=== PATIENT | female | born 1985 | race African-American/Black ===

== ENCOUNTER 2020-03-13 14:55 | Emergency (ER) | payer OTHER, SELFPAY ==
--- NOTE | ~2020-03-13 | XR_ITS ---
EXAMINATION: XR abdomen/kub 1V INDICATION: Right-sided low back pain TECHNIQUE: Supine views of the abdomen were obtained on 2 radiographs. COMPARISON: None FINDINGS: There are no dilated loops of bowel. The visualized lung bases are clear. There are phlebol iths of the pelvis. An old anterolateral deformity of the right 10th rib is noted. There is moderate spondylosis at L5-S1. IMPRESSION: 1. No radiographic correlate for the patient's symptoms. Reviewed, dictated and finalized at location A.
--- NOTE | 2020-03-13 15:04 | ED.GENADULT ---
HPI - General Adult General Chief complaint: Back Pain/Injury Stated complaint: Rt flank/back pain/rash on hands Time Seen by Provider: 03/13/20 15:04 Source: patient Mode of arrival: ambulatory Limitations: no limitations History of Present Illness HPI narrative: 34-year-old female patient presents to [facility] with complaints right lower back pain that radiates to the flank and the right lower abdomen. Patient states she has had this pain for about a week now. Denies any pain with urination, urgency or frequency. Denies any fevers, body aches or chills. Denies any nausea, vomiting or diarrhea. Patient states she does have history of degenerative disc disease in her lower back but states that this pain is not her typical degenerative disc disease chronic back pain and states that the pain to the side is new. Denies any history of kidney stones before in the past. Denies or breast-feeding at this time. Patient unaware of when her last period was due to the fact that she is on the Nexplanon. Related Data Home Medications Medication Instructions Recorded Confirmed ergocalciferol (vitamin D2) 50,000 mcg PO DAILY 03/13/20 03/13/20 omeprazole 20 mg PO DAILY 03/13/20 03/13/20 Allergies Allergy/AdvReac Type Severity Reaction Status Date / Time No Known Allergies Allergy Unverified 05/26/17 13:30 Review of Systems Review of Systems: Narrative: CONSTITUTIONAL: Denies fever, chills, or sweats. EYES: Denies visual changes, redness, or discharge. ENT: Denies rhinorrhea, congestion, sore throat, or otalgia. CARDIOVASCULAR: Denies chest pain, palpitations, or edema. RESPIRATORY: Denies cough or dyspnea. GASTROINTESTINAL: Positive right side lower abdominal pain, denies nausea, vomiting, or diarrhea. Positive right flank pain GENITOURINARY: Denies dysuria or hematuria. SKIN: Denies rash or itching. MUSCULOSKELETAL: Positive right lower back pain, denies joint pain, or myalgia. NEUROLOGIC: Denies headache, numbness, or weakness. PSYCHIATRIC: Denies anxiety or depression. [facility] Social History Social History Alcohol intake: current Substance use type: marijuana Gender identity (if verbalized by the patient): Female Comments At the time of my signature I agree with nursing past medical history, surgical, social, and family history. There is no relevant family history pertinent to the presenting complaint. Exam Narrative: Exam Narrative: GENERAL: Well-appearing, well-nourished, and in no acute distress. HEAD: Normocephalic, atraumatic. EYES: PERRLA and EOMI. ENT: Nares clear, no rhinorrhea or epistaxis. Mucous membranes moist. NECK: Supple. No lymphadenopathy CHEST: Clear to auscultation. No respiratory distress. HEART: Regular rate and rhythm. No murmur heard. Normal peripheral pulses. ABDOMEN: Soft, flat, nondistended. No guarding, rebound tenderness, or rigid. No pulsatilla masses. Hyperactive bowel sounds present in all right upper and right lower quadrants. No organomegaly. Negative Najera?s sign. No periumbicial tenderness. No Supra public tenderness or distension. Good femoral pulses bilaterally. No hernia noted. No scars or surface trauma. Slight CVA tenderness to the right BACK: Patient is able to ambulated without assistance. Pt is seated/lying on the stretcher in no obvouis distress. No surface trauma noted. No muscle tenderness to Palpation. No spasm or mass. No step-offs or deformity noted to the cervical, thoracic or lumbar spine to firm Palpation at the midline. No CVA tenderness to percussion. No saddle anesthesia. ROM: able to stand erect. Normal flexion, extension, Lateral bending and rotation without limitation or complaint of pain. EXTREMITIES: Normal range of motion. No edema. SKIN: Warm, dry, no rash. NEURO: No focal deficits. Alert and oriented x3. Course Reevaluation(s) Reevaluation #1: Reevaluated patient after her KUB had resulted. D
[2020-03-13 15:16] VITALS: BP 120/73; PULSE 83; RESP 18; TEMP 36.7; O2SAT 100
== END 2020-03-13 16:26 | disposition home or self-care (01) ==
PROVIDERS: Emergency Provider Nurse Practitioner Family; PCP Emergency Medicine
DX: R10.9 Unspecified abdominal pain (principal); K21.9 Gastro-esophageal reflux disease without esophagitis
CPT/HCPCS: 74018; 81003; 87086; 99213; G0463

== ENCOUNTER 2020-05-14 08:09 | Outpatient (CLI) | payer OTHER, SELFPAY ==
--- NOTE | ~2020-05-14 | US_ITS ---
US abdomen complete EXAMINATION: US Abdomen Complete INDICATION: Elevated liver enzymes PROCEDURE: Realtime High Resolution abdomen ultrasound. COMPARISON: CT dated 01/06/2016 FINDINGS: Gallbladder within normal limits. No gallstones, pericholecystic fluid, gallbladder wall t hickening or biliary dilatation. Common bile duct measures 3 mm. Liver echotexture within normal limits without focal mass. Pancreas within normal limits. Pancreati c tail is obscured by bowel gas. Spleen is unremarkeable. Renal echotexture is within normal limits bilaterally without hydronephrosis, contour deforming mass or renal stone. Right kidney measures 10.1 cm. Left kidney measures 9.7 cm. Visualized aspects of the aorta and IVC are within normal limits. Portal vein is patent. No sonograph ic Najera's sign indicated by the technologist. IMPRESSION: 1: Normal abdominal ultrasound. Reviewed, dictated and finalized at location A. ATIONAL PSYCHOLOGY PROFESSOR
== END 2020-05-14 08:10 | disposition home or self-care (01) ==
LOC: ANHIMG 08:19
PROVIDERS: PCP Emergency Medicine; Visit Provider Emergency Medicine
DX: K76.89 Other specified diseases of liver (principal)
CPT/HCPCS: 76700

== ENCOUNTER 2020-06-11 17:00 | Outpatient (RCR) | payer OTHER, SELFPAY ==
--- NOTE | 2020-05-14 17:46 | PTOPEVAL ---
PHYSICAL THERAPY EVALUATION AND PLAN OF CARE Thank you for referring Barb Marino to [facility].? The patient is scheduled to be seen for therapy? 1-2x/week for 3-4 weeks to accommodate patient's ability to make appointments. Please review, sign, date and return this plan of care ERICK. I agree with and certify that the following plan of care is medically necessary. Referring Physician Date Attending Provider: Aaron Cherry, Evaluation Outpatient Past Medical History Gastrointestinal History Hx Gastroesophageal Reflux Disease Yes Musculoskeletal History Hx Back Pain Yes: DDD, diagnosed in 2014 Diagnosis low back pain - degenerative disc disease Onset 2014 Subjective Information Reports that her back hurts 24 Query Text:As Reported By Patient/ /. She was diagnosed with DDD Family in 2014 and pain has worsened . She was referred to a pain management doctor and she has received 2 rounds of steroid injections. The first round she felt really good for 4-5 days. The second round was today, so she is not sure the effects yet. Pain stays pretty much the same all day. She has to brace herself for coughing and sneezing and in the mornings she is really stiff. She cannot do too much bending over. States that pain management is hoping to get an MRI to compare to the MRI from 2015. Reports no radicular symptoms. Diagnostic Tests MRI For This Problem Yes: from 2014 - DDD Self Report Pain Assessment Bilateral Spine, Lumbar Reported Pain Level 6 Pain Description Aching,Sharp Pain Frequency Chronic,Continuous Lowest Pain Intensity 4 Greatest Pain Intensity 9 Pain Aggravating Factors Bending Pain Score Pain Score 6: Self Report Interventions Used Interventions Used By Clinicians Exercise Pain Relief Interventions Used By Heat Patient Cervical and Lumbar ROM Lumbar ROM Lumbar Flexion (0-90) 50 Query Text:Active in Degrees Lumbar Flexion Active Ankle Query Text:Hands to: Lumbar Extension (0-40) 30 Query Text:Active in Degrees Lateral Rotation Right (0-45) 30 Query Text:Active in Degrees
--- NOTE | 2020-06-01 14:35 | PCPTNOTE ---
Patient called & cancelled scheduled appointments for this week due to work schedule.
--- NOTE | 2020-06-03 11:31 | PCPTNOTE ---
Patient called & cancelled scheduled appointment this date due to work.
--- NOTE | 2020-06-08 18:00 | PCPTNOTE ---
Patient did not show up for scheduled appointment this date; voicemail left for remind of re-eval
--- NOTE | 2020-06-11 17:40 | PTOPEVAL ---
PHYSICAL THERAPY DISCHARGE NOTE Thank you for referring Barb Marino to [facility].? Please review, sign, date and return this plan of care ERICK. I agree with and certify that the following plan of care is medically necessary. Referring Physician Date Attending Provider: Aaron Cherry, MD Discharge Diagnosis low back pain - degenerative disc disease Onset 2014 Subjective Information States she is doing ok. 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 She states that next week she sees the doctor for lidocaine injections and there will likely be other procedures after that. She is still interested in an MRI of the low back. Self Report Pain Assessment Bilateral Spine, Lumbar Reported Pain Level 1 Pain Description Aching,Sharp Pain Frequency Chronic,Continuous Pain Aggravating Factors Bending,Lifting Other Pain Aggravating Factors twisting Pain Score Pain Score 1: Self Report Interventions Used Interventions Used By Clinicians Exercise Pain Relief Interventions Used By Heat Patient Cervical and Lumbar ROM Lumbar ROM Lumbar Flexion (0-90) 50 Query Text:Active in Degrees Lumbar Flexion Active Ankle Query Text:Hands to: Lumbar Extension (0-40) 30 Query Text:Active in Degrees Lateral Rotation Right (0-45) 30 Query Text:Active in Degrees Lateral Rotation Left (0-45) 30 Query Text:Active in Degrees Lumbar Comments flexion = clean movement and able to reach toes Cervical and Lumbar Muscle Testing Lumbar Strength Upper Abdominal Strength 3+Fair+ Lower Abdominal Strength 3+Fair+ Lower Extremity Muscle Strength Testing Hip Strength Left Hip Flexion Strength 4+ Good + Hip Extension Strength 4 Good Hip Abduction Strength 4+ Good + Right Hip Flexion Strength 5 Normal Hip Extension Strength 4+ Good + Hip Abduction Strength 5 Normal Knee Strength Left Knee Flexion Strength 5 Normal Knee Extension Strength 5 Normal Right Knee Flexion Strength 5 Normal Knee Extension Strength 5 Normal Muscle Length Testing Muscle Length Testing Napoleon Test Shortened Muscles Short (L) Rectus Femoris Piriformis w/Hip Flexion >90 Degrees (R) Mild Tightness,(L) Moderate Tightnes
== END 2020-06-12 09:05 | disposition home or self-care (01) ==
LOC: ANHPT 17:00
PROVIDERS: PCP Emergency Medicine; Referring Provider Nurse Practitioner Family; Visit Provider Nurse Practitioner Family
DX: M54.5 Low back pain (principal)
CPT/HCPCS: 97110; 97161

== ENCOUNTER 2020-08-15 08:43 | Outpatient (CLI) | payer OTHER, SELFPAY ==
--- NOTE | ~2020-08-15 | MR_ITS ---
EXAMINATION: MR lumbar spine wo con DATE: 08/15/2020 09:24 INDICATION: Lumbago TECHNIQUE: Magnetic resonance imaging (MRI) of the lumbar spine was performed without intravenous con trast. Sequences included sagittal T2-weighted FSE, sagittal T2-weighted FS FSE, sagittal T1-weighted FSE, and axial T2-weighted FSE. COMPARISON: 03/18/2015 FINDINGS: Alignment is normal. Vertebral body heights are normal. Diffuse red marrow reexpansion throughout the spine. Disc desiccation and annular fissures at L4-L5 and L5-S1. Minimal disc height loss at L4-L5 a nd interval progression of now moderate disc height loss at L5-S1. Degenerative endplate changes with fibrofatty and fibrovascular changes at both sides of L5-S1. The conus medullaris terminates at L2. There is normal signal in the caudal spinal cord. Paravertebral soft tissues are unremarkable. The fo llowing disc levels are specifically discussed: T12-L1 through L3-L4: The disc does not extend beyond the endplate margin. There is no facet joint os teoarthritis. There is no neural foraminal stenosis. There is no central canal stenosis. L4-L5: Mild diffuse disc bulge. There is mild bilateral facet joint osteoarthritis. There is mild gagan ateral neural foraminal stenosis. There is mild central canal stenosis. L5-S1: Disc is mildly bulging with superimposed broad-based disc extrusion extending from foraminal z one to foraminal zone with disc material extending couple millimeter caudal to the level of the super ior endplate of S1. There is mild bilateral facet joint osteoarthritis. There is moderate bilateral n eural foraminal stenosis. There is minimal central canal stenosis. IMPRESSION: 1. Mild to moderate lower lumbar spondylosis with progression of now moderate disc height loss at L5- S1. Reviewed, dictated and finalized at location A. IMPRESSION: 1. Mild to moderate lower lumbar spondylosis with progression of now moderate d isc height loss at L5-S1.
== END 2020-08-15 08:44 | disposition home or self-care (01) ==
PROVIDERS: PCP Emergency Medicine; Visit Provider Nurse Practitioner Family
DX: M47.896 Other spondylosis, lumbar region (principal)
CPT/HCPCS: 72148

== ENCOUNTER → 2020-10-09 08:07 | Outpatient (CLI) | payer OTHER, SELFPAY ==
[2020-10-10 19:44] LABS: SARS-CoV-2 RNA PCR Negative
== END ==
PROVIDERS: PCP Emergency Medicine; Visit Provider Emergency Medicine
DX: Z20.822 Contact with and (suspected) exposure to COVID-19 (principal); B34.9 Viral infection, unspecified
CPT/HCPCS: C9803; U0003; U0005

== ENCOUNTER 2020-12-15 19:32 | Emergency (ER) | payer OTHER, SELFPAY ==
--- NOTE | ~2020-12-15 | XR_ITS ---
EXAMINATION: XR wrist LT min 3V EXAM DATE: 12/15/2020 19:52 INDICATION: lt wrist pain after injury. TECHNIQUE: Left wrist frontal, frontal with ulnar deviation, oblique and lateral projections obtained and reviewed. There is no prior study for comparison. FINDINGS: Left wrist scapholunate joint space is maintained. There are no acute fractures or dislocat ions identified. There is no subcutaneous gas. The soft tissue is unremarkable. There are no radi opaque foreign bodies. IMPRESSION: No acute osseous findings. Reviewed, dictated and finalized at location A. IMPRESSION: No acute osseous findings.
[2020-12-15 19:42] VITALS: BP 126/76; PULSE 81; RESP 16; TEMP 36.6; O2SAT 100
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
== END 2020-12-15 20:12 | disposition home or self-care (01) ==
PROVIDERS: Emergency Provider Nurse Practitioner; PCP Emergency Medicine
DX: S63.502A Unspecified sprain of left wrist, initial encounter (principal); S66.912A Strain of unspecified muscle, fascia and tendon at wrist and hand level, left hand, initial encounter; X58.XXXA Exposure to other specified factors, initial encounter; K21.9 Gastro-esophageal reflux disease without esophagitis
CPT/HCPCS: 73110; 99213; G0463

== ENCOUNTER → 2021-02-05 02:57 | Outpatient (CLI) | payer OTHER, SELFPAY ==
[2021-02-05 18:57] LABS: SARS-CoV-2 RNA PCR Negative
== END ==
PROVIDERS: PCP Emergency Medicine; Visit Provider Emergency Medicine
DX: B34.9 Viral infection, unspecified (principal); Z20.822 Contact with and (suspected) exposure to COVID-19
CPT/HCPCS: C9803; U0003; U0005

== ENCOUNTER 2021-05-15 08:45 | Outpatient (CLI) | payer OTHER, SELFPAY ==
--- NOTE | ~2021-05-15 | MM_ITS ---
EXAMINATION: MM screening jone BI w mio HISTORY: Screening mammogram TECHNIQUE: Craniocaudal and mediolateral oblique 3-D tomosynthesis images were obtained and synthetic 2-D images were generated. CAD analysis was submitted and interpreted. COMPARISON: None, baseline BREAST PARENCHYMAL COMPOSITION: There are scattered areas of fibroglandular density. FINDINGS: RIGHT BREAST: There is a focal asymmetry in the posterior third of the slightly upper breast in line with the nipple axis. LEFT BREAST: There is no evidence of suspicious mass, calcification, or architectural distortion to s uggest malignancy. IMPRESSION: 1. Focal asymmetry of the right breast. 2. Additional mammographic views and possible breast ultrasound are recommended. BI-RADS Category 0: Incomplete: Needs additional imaging evaluation. Reviewed, dictated and finalized at location A. CRIB ATTENDANT IMPRESSION: 1. Focal asymmetry of the right breast. 2. Additional mammographic views and possible breast ultrasound are recommended . BI-RADS Category 0: Incomplete: Needs additional imaging evaluation.
== END 2021-05-15 08:46 | disposition home or self-care (01) ==
LOC: ANHIMG 08:46
PROVIDERS: PCP Emergency Medicine; Visit Provider Emergency Medicine
DX: Z12.31 Encounter for screening mammogram for malignant neoplasm of breast (principal); R92.8 Other abnormal and inconclusive findings on diagnostic imaging of breast
CPT/HCPCS: 77063; 77067

== ENCOUNTER 2021-05-18 14:57 | Emergency (ER) | payer OTHER, SELFPAY ==
[2021-05-18 15:10] VITALS: BP 124/64; PULSE 88; RESP 16; TEMP 36.6; O2SAT 100
--- NOTE | 2021-05-18 16:22 | ED.GENADULT ---
HPI - General Adult General Chief complaint: Back Pain/Injury Stated complaint: back pain/abdominal pain Source: patient Mode of arrival: ambulatory Limitations: no limitations History of Present Illness HPI narrative: Patient is a 35-year-old -[place] female presents to the [facility] via POV for evaluation of chronic back pain. Her PCP is Dr. Calvillo. She is also being managed by her pain management md. she reports her back pain this morning to be worsening therefore she called her PCP who recommended urgent care which prompted today's visit. She states her back pain was especially painful this morning. She states it felt more stiff and a pinching pain . She also reports a stomachache that is mild in nature although states, I am really not here for that, I am really here for my back pain. She is scheduled to have a nerve stimulator placed in May although is awaiting a psych evaluation. Denies taking OTC meds for symptoms. Her meloxicam and gabapentin are ineffective per her reports. Everything worsens back pain Related Data Home Medications Medication Instructions Recorded Confirmed ergocalciferol (vitamin D2) 50,000 mcg PO DAILY 03/13/20 12/15/20 famotidine 40 mg PO DAILY 12/15/20 12/15/20 gabapentin 05/18/21 meloxicam 05/18/21 Allergies Allergy/AdvReac Type Severity Reaction Status Date / Time No Known Allergies Allergy Verified 05/18/21 15:16 Review of Systems Review of Systems: Denies injury. Pertinent negatives fever, chills, sweats, change in appetite, poor p.o. intake, malaise, headache, stiffness, spasms, abdominal pain, nausea, vomiting, diarrhea, constipation, dysuria, urinary frequency/urgency, hematuria, urinary retention, flank pain, bladder/bowel incontinence, skin color changes, deformity, numbness, tingling, loss of sensation, decreased ROM, difficulty with ambulation/coordination, chest pain, heart palpitations/murmurs, and sob. [facility] Social History Social History Alcohol intake: current Substance use type: marijuana Gender identity (if verbalized by the patient): Female Comments I have reviewed and agree with the patient's past medical, surgical, social, and family hx as documented by the RN. There is no relevant family history pertinent to the presenting complaint. Exam Narrative: GENERAL: Well-appearing, well-nourished, and in no acute distress. HEAD: Normocephalic, atraumatic. NECK: Supple. No lymphadenopathy or nuchal rigidity. No evidence of pain, decreased ROM, or deformity. CHEST: Lung sounds are clear to auscultation in bilateral lung patel. No respiratory distress. HEART: Regular rate and rhythm. No murmur heard. Normal peripheral pulses. ABDOMEN: Soft, nontender, nondistended, normal active bowel sounds in all quadrants. No guarding. No rebound tenderness. No pulsatile or palpable abdominal mass(es). No CVAT EXTREMITIES: Normal range of motion. No edema. BACK: Full ROM. Moderate pain is elicited to bilateral low back with all movement and palpation. No evidence of deformity, spasm, mass, spinal tenderness, or swelling. Bilateral SLR tests negative. Ambulates hunched over. Slowed gait. SKIN: Warm, dry, no rash. No skin color changes. Excellent turgor. NEURO: No focal deficits. Alert and oriented x3. Course Vital Signs Vital signs: Vital Signs Temperature 97.9 F 05/18/21 15:10 Pulse Rate 88 05/18/21 15:10 Respiratory Rate 16 05/18/21 15:10 Blood Pressure 124/64 05/18/21 15:10 Pulse Oximetry 100 05/18/21 15:10 Temperature 97.9 F 05/18/21 15:10 Pulse Rate 88 05/18/21 15:10 Respiratory Rate 16 05/18/21 15:10 Blood Pressure 124/64 05/18/21 15:10 Pulse Oximetry 100 05/18/21 15:10 Medical Decision Making Differential Diagnosis Differential Diagnosis: Spinal stenosis, radiculopathy/sciatica,cauda equina syndrome, sacroiliac pathology, fracture, strain, spasm, U
== END 2021-05-18 16:45 | disposition home or self-care (01) ==
PROVIDERS: Emergency Provider Nurse Practitioner Family; PCP Emergency Medicine
DX: G89.29 Other chronic pain (principal); M54.50 Low back pain, unspecified; K21.9 Gastro-esophageal reflux disease without esophagitis
CPT/HCPCS: 99213; G0463

== ENCOUNTER 2021-06-21 13:28 | Outpatient (CLI) | payer OTHER, SELFPAY ==
--- NOTE | ~2021-06-21 | MMUS_ITS ---
EXAMINATION: MM diagnostic jone RT w mio, US breast RT limited HISTORY: Right breast focal asymmetry on screening mammogram TECHNIQUE: Additional 3-D tomosynthesis images of the right breast were performed and synthetic 2-D i mages were generated. CAD analysis was submitted and interpreted. High resolution limited right breas t ultrasound was performed. COMPARISON: 05/15/2021 BREAST PARENCHYMAL COMPOSITION: There are scattered areas of fibroglandular density. FINDINGS: MAMMOGRAPHIC FINDINGS: No persistent focal asymmetry is identified with spot compression of the right breast. There is no barber spicious mass, calcification, or architectural distortion. ULTRASOUND: There is no evidence of focal abnormal solid or cystic mass in the vicinity of the mammographic findi ng in question. IMPRESSION: 1. No mammographic or sonographic evidence of malignancy. 2. Recommend routine screening mammography beginning at age 40. BI-RADS Category 1: Negative Reviewed, dictated and finalized at location A. DESIGN TEACHER IMPRESSION: 1. No mammographic or sonographic evidence of malignancy. 2. Recommend routine screening mammography beginning at age 40. BI-RADS Category 1: Negative
== END 2021-06-21 13:29 | disposition home or self-care (01) ==
LOC: ANHIMG 13:29
PROVIDERS: PCP Emergency Medicine; Visit Provider Nurse Practitioner Obstetrics & Gynecology
DX: R92.8 Other abnormal and inconclusive findings on diagnostic imaging of breast (principal)
CPT/HCPCS: 76642; 77061; 77065; G0279

== ENCOUNTER 2021-08-17 09:33 | Emergency (ER) | payer OTHER, SELFPAY ==
--- NOTE | ~2021-08-17 | XR_ITS ---
EXAMINATION: XR foot RT min 3V DATE: 08/17/2021 10:33 INDICATION: First toe pain TECHNIQUE: Dorsoplantar, lateral, and 2 oblique views of the right foot were obtained. COMPARISON: 07/09/2012 FINDINGS: There is no acute fracture, dislocation, or subluxation. The bones, soft tissues, and joint spaces are normal. An old healed fracture of the third proximal phalanx is noted. IMPRESSION: 1. No acute osseous abnormality. Reviewed, dictated and finalized at location K.
[2021-08-17 09:41] VITALS: BP 118/70; PULSE 78; RESP 16; TEMP 36.2; O2SAT 99
--- NOTE | 2021-08-17 09:59 | ED.LOWEXIN ---
HPI - Extremity Injury (Lower) General Chief Complaint: Extremity Injury, Lower Stated Complaint: injury right 1st digit toe Time Seen by Provider: 08/17/21 09:59 Source: patient, RN notes reviewed and old records reviewed Mode of arrival: ambulatory Limitations: no limitations History of Present Illness HPI Narrative: 35 old female presents to the [facility] with right great toe pain and swelling. Patient states that she stepped her toe. Has bruising noted to the medial aspect. Related Data Home Medications Medication Instructions Recorded Confirmed gabapentin 300 mg PO DAILY 05/18/21 08/17/21 meloxicam 7.5 mg PO DAILY 05/18/21 08/17/21 omeprazole 20 mg PO DAILY 08/17/21 08/17/21 Allergies Allergy/AdvReac Type Severity Reaction Status Date / Time No Known Allergies Allergy Verified 08/17/21 10:14 Review of Systems Review of Systems: All systems reviewed & are unremarkable except as noted in HPI and below Constitutional: Constitutional: Reports no additional constitutional complaints Eyes: Eyes: Reports no additional eye complaints ENT: Reports system reviewed and no additional complaints, except as documented Cardiovascular: Cardiovascular: Reports no additional cardiovascular complaints Respiratory: Respiratory: Reports no additional respiratory complaints Gastrointestinal: Gastrointestinal: Reports no additional gastrointestinal complaints and Denies abdominal pain Musculoskeletal: Musculoskeletal: Reports as per HPI Comments: Right great toe pain, swelling, bruising Integumentary/Breasts: Skin/Breast: Reports system reviewed and no additional complaints, except as docu Neurologic: Reports system reviewed and no additional complaints, except as documented Psychiatric: Psychiatric: Reports no additional psychiatric complaints Allergic/Immunologic: Allergic/Immunologic: Reports no additional allergic/immunologic complaints PMFSH Social History Social History Alcohol intake: current Substance use type: marijuana Gender identity (if verbalized by the patient): Female Comments At the time of my signature, I reviewed and agree with the nursing past medical, surgical, social, and family history. There is no relevant family history pertinent to the patient complaint. Exam Const: General: healthy appearing, no acute distress and alert Nutritional Appearance: well nourished Orientation/consciousness: patient oriented x3 Limitations: no limitations HENMT: Head: normal to inspection Eyes: Pupils: Equal, round and reactive pupils present Neck: Neck: normal visual inspection, no lymphadenopathy and no meningeal signs Chest: Chest palpation & inspection: normal inspection of the chest Resp: Effort & Inspection: normal respiratory effort Auscultation: clear to auscultation bilaterally Cardio: Rate: regular rate Rhythm: regular rhythm : General: Yes no CVA tenderness Back/Spine/Pelvis: Back: no CVA tenderness Skin: General skin exam: normal color Rashes: no rashes Wounds: no wounds Neuro: General: patient oriented x3, moves all extremities, no meningeal signs and no focal motor deficits Cranial nerves: Yes Equal, round and reactive pupils present Speech: normal speech Gait exam (Neuro): Normal gait present Extrem: General: capillary refill normal and normal exam except as noted Right lower extremity: foot Details: normal capillary refill, tenderness (Base of right toe), abnormal ROM of toe Details: pain with active ROM Location: of the great toe and pain with passive ROM Location: of the great toe and ecchymosis (Right great toe medial aspect) Psych: Appearance: grossly normal and well kempt Mental Status: mental status grossly normal Affect: normal affect Attitude: cooperative Thought content: Yes Normal thought content present Course Course Emergency Course: Discharge instructions reviewed with patient, as well as provided
== END 2021-08-17 11:00 | disposition home or self-care (01) ==
PROVIDERS: Emergency Provider Nurse Practitioner; PCP Emergency Medicine
DX: S90.111A Contusion of right great toe without damage to nail, initial encounter (principal); X58.XXXA Exposure to other specified factors, initial encounter; K21.9 Gastro-esophageal reflux disease without esophagitis
CPT/HCPCS: 73630; 99213; G0463

== ENCOUNTER 2021-11-17 09:34 | Outpatient (CLI) | payer OTHER, SELFPAY ==
--- NOTE | ~2021-11-17 | XR_ITS ---
EXAMINATION: XR_ENEMABAC_CR DATE: 11/17/2021 10:37 INDICATION: Anemia. Incomplete colonoscopy. 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 A catheter was inserted into the patient's rectum. Contra st was infused by gravity. Gas was infused by hand pump. Fluoroscopic spot images and conventional ra diographs were obtained. Fluoroscopy exposure time was 0.6 minutes. The total number of images was 26 . COMPARISON: CT abdomen and pelvis 01/06/16 FINDINGS: There is no abnormal mass or stricture. The appendix is normal. IMPRESSION: 1. Normal double contrast enema. Reviewed, dictated and finalized at location A.
== END 2021-11-17 09:35 | disposition home or self-care (01) ==
PROVIDERS: PCP Emergency Medicine; Visit Provider Internal Medicine Gastroenterology
DX: Z53.9 Procedure and treatment not carried out, unspecified reason (principal); D64.9 Anemia, unspecified
CPT/HCPCS: 74280

== ENCOUNTER 2022-04-13 11:59 | Emergency (ER) | payer OTHER, SELFPAY ==
[2022-04-13 12:04] VITALS: BP 129/74; PULSE 106; RESP 16; TEMP 36.9; O2SAT 100
--- NOTE | 2022-04-13 12:10 | ED.URI ---
HPI - URI/Sore Throat General Chief Complaint: Upper Respiratory Infection Stated Complaint: sore throat Time Seen by Provider: 04/13/22 12:18 History of Present Illness HPI Narrative: 36 y/o female presented for c/o sore throat, weakness, and body aches for 2 days. Subjective fever. Denies sick contacts. Currently on treatment for yeast infection, was seen by ObGyn yesterday. Awaiting STD testing as well for c/o vaginal discharge. Denies n/v/d, urinary complaints. LMP 03/02/22. Related Data Home Medications Medication Instructions Recorded Confirmed gabapentin 300 mg capsule 300 mg PO DAILY 05/18/21 04/13/22 meloxicam 7.5 mg tablet 7.5 mg PO DAILY 05/18/21 04/13/22 omeprazole 20 mg capsule,delayed 20 mg PO DAILY 08/17/21 04/13/22 release cyclobenzaprine 10 mg tablet 10 mg PO DIRECTED 04/13/22 04/13/22 famotidine 40 mg tablet 40 mg PO DAILY 04/13/22 04/13/22 fluconazole 200 mg tablet 200 mg PO DIRECTED 04/13/22 04/13/22 metronidazole 0.75 % (37.5 mg/5 1 appful vaginal DIRECTED 04/13/22 04/13/22 gram) vaginal gel Allergies Allergy/AdvReac Type Severity Reaction Status Date / Time No Known Allergies Allergy Verified 04/13/22 12:17 Review of Systems Review of Systems: CONSTITUTIONAL: Denies body aches, fever, chills, or sweats. EYES: Denies visual changes, redness, or discharge. ENT: Denies rhinorrhea, congestion, or otalgia. CARDIOVASCULAR: Denies chest pain, palpitations, or edema. RESPIRATORY: Denies dyspnea. GASTROINTESTINAL: Denies abdominal pain, nausea, vomiting, or diarrhea. SKIN: Denies rash, itching, or wounds. MUSCULOSKELETAL: Denies back pain, joint pain, or myalgia. NEUROLOGIC: Denies headache PMFSH Social History Social History Alcohol intake: current Substance use type: marijuana Gender identity (if verbalized by the patient): Female Exam Narrative: GENERAL: Ill-appearing, no acute distress. EYES: conjunctivae clear ENT: Mucous membranes moist. TMs pearly guerrero with normal light reflex bilaterally; no tragal tenderness. Oropharynx erythematous with Tonsillar swelling 2+ and green exudate. No drooling, no hoarseness, no trismus, uvula midline. No tripod positioning, hot potato voice, or soft palate swelling. NECK: Supple. No lymphadenopathy CHEST: Clear to auscultation, breath sounds equal. No respiratory distress, speaks in full sentences. HEART: Regular rate and rhythm. No murmur heard. SKIN: Warm, dry, no rash. NEURO: Alert and oriented x3. Course Course Emergency Course: Patient is aware of diagnosis, understands and agrees to treatment plan. Anticipatory guidance given. Patient agrees to follow-up as directed and is aware of reasons to seek care at the emergency department. Portions of this record may have been created with voice recognition software Level of Care: Express Care Visit Vital Signs Vital signs: Vital Signs Temperature 98.5 F 04/13/22 12:04 Pulse Rate 106 H 04/13/22 12:04 Respiratory Rate 16 04/13/22 12:04 Blood Pressure 129/74 04/13/22 12:04 Pulse Oximetry 100 04/13/22 12:04 Oxygen Delivery Room Air 04/13/22 12:04 Temperature 98.5 F 04/13/22 12:04 Pulse Rate 106 H 04/13/22 12:04 Respiratory Rate 16 04/13/22 12:04 Blood Pressure 129/74 04/13/22 12:04 Pulse Oximetry 100 04/13/22 12:04 Oxygen Delivery Room Air 04/13/22 12:04 MDM - URI/Sore Throat MDM Narrative Medical decision making narrative: Neg flu and strep result reviewed with pt. Neg urine preg. Based on pt's PE, developing sx after recent new sexual partner, and c/o vaginal discharge will r/o pharyngeal gonorrhea/chlamydia. Pt is agreeable for empiric treatment of gonorrhea at this time and should chlamydia result positive she will be treated accordingly. Aware the results can take up to one week. Advised supportive treatments. Patient is appropriate for outpatient treatment and foll
[2022-04-13] MEDS: cefTRIAXone 500 MG, LIDOCAINE HCL 1% LOCAL INJ 1 ML IM (12:52)
== END 2022-04-13 13:15 | disposition home or self-care (01) ==
PROVIDERS: Emergency Provider Nurse Practitioner Family; PCP Emergency Medicine
DX: J02.9 Acute pharyngitis, unspecified (principal); F12.90 Cannabis use, unspecified, uncomplicated
CPT/HCPCS: 81025; 87081; 87491; 87591; 87804; 87880; 96372; 99213; G0463; J0696

== ENCOUNTER 2022-04-14 10:43 | Emergency (ER) | payer OTHER, SELFPAY ==
[2022-04-14 11:08] VITALS: BP 120/73; PULSE 92; RESP 18; TEMP 36.4; O2SAT 99
--- NOTE | 2022-04-14 12:37 | PC.NURSE ---
PT added that she had a new sex partner 5 days ago and did perform oral sex and is wondering if it could possibly be an STD. informed patient to share information with provider.
--- NOTE | 2022-04-14 13:05 | ED.URI ---
HPI - URI/Sore Throat General Chief Complaint: Upper Respiratory Infection Stated Complaint: sore throat Time Seen by Provider: 04/14/22 12:19 Source: patient History of Present Illness HPI Narrative: Patient 36 years old -[place] female presents with sore throat started 2 days after having oral sex with a new partner. Patient went to urgent care yesterday and tested negative for COVID, strep and influenza, received antibiotic intramuscular for gonorrhea and declined to take any further antibiotic for possible chlamydia. Patient came to our emergency room today for further evaluation and questioning. She denies any fever, chills, nausea, vomiting. Patient reported some nasal congestion and the feeling that she needs to blow her nose. Related Data Home Medications Medication Instructions Recorded Confirmed gabapentin 300 mg capsule 300 mg PO DAILY 05/18/21 04/13/22 meloxicam 7.5 mg tablet 7.5 mg PO DAILY 05/18/21 04/13/22 omeprazole 20 mg capsule,delayed 20 mg PO DAILY 08/17/21 04/13/22 release cyclobenzaprine 10 mg tablet 10 mg PO DIRECTED 04/13/22 04/13/22 famotidine 40 mg tablet 40 mg PO DAILY 04/13/22 04/13/22 fluconazole 200 mg tablet 200 mg PO DIRECTED 04/13/22 04/13/22 metronidazole 0.75 % (37.5 mg/5 1 appful vaginal DIRECTED 04/13/22 04/13/22 gram) vaginal gel Allergies Allergy/AdvReac Type Severity Reaction Status Date / Time No Known Allergies Allergy Verified 04/13/22 12:17 Review of Systems Review of Systems: All systems reviewed & are unremarkable except as noted in HPI and below PMFSH Social History Social History Alcohol intake: current Substance use type: marijuana Gender identity (if verbalized by the patient): Female Exam Narrative: General appearance: Well-developed, well-nourished Skin: Normal color Head: Normocephalic, nontraumatic Eyes: Clear conjunctiva ENT: Oropharyngeal erythema, slight white patches on the tonsils bilaterally Neck: Supple, nontender Chest and respiratory: Airway patent, no respiratory distress, no accessory muscle use Heart: Regular rate/rhythm Abdomen: Soft, nontender, no organomegaly, quiet bowel sounds Vascular: Normal peripheral pulses, normal capillary refill. Musculoskeletal: Normal range of motion, nontender back Neurologic: Alert and oriented ?3, [employer] is normal as tested, no gross motor deficit Course Course Emergency Course: Viral pharyngitis is my concern. Patient tested negative for COVID, influenza and RSV. Still a possibility for rhinovirus, adenovirus etc. Patient received a shot of antibiotic yesterday for possible gonorrhea, she declined any antibiotic for possible chlamydia. My plan to discharge patient on 1 g of azithromycin for possible STD. Vital Signs Vital signs: Vital Signs Temperature 36.4 C L 04/14/22 11:08 Pulse Rate 92 04/14/22 11:08 Respiratory Rate 18 04/14/22 11:08 Blood Pressure 120/73 04/14/22 11:08 Pulse Oximetry 99 04/14/22 11:08 Oxygen Delivery Room Air 04/14/22 11:08 Temperature 36.4 C L 04/14/22 11:08 Pulse Rate 92 04/14/22 11:08 Respiratory Rate 18 04/14/22 11:08 Blood Pressure 120/73 04/14/22 11:08 Pulse Oximetry 99 04/14/22 11:08 Oxygen Delivery Room Air 04/14/22 11:08 MDM - URI/Sore Throat Differential Diagnosis Differential diagnosis: Likely upper respiratory infection, viral infection and pharyngitis Lab Data Labs: Lab Results 04/14/22 Range/Units 13:16 Influenza A (RT-PCR) Negative (Negative) Influenza B (RT-PCR) Negative (Negative) SARS-CoV-2 RNA (RT-PCR) Negative Strep Screen
[2022-04-14 14:08] LABS: Influenza A QL RT-PCR Negative (Negative); Influenza B QL RT-PCR Negative (Negative); SARS-CoV-2 RNA PCR Negative
[2022-04-14 15:33] LABS: Monoscreen Negative (Negative); Negative Monotest Control Negative (Negative); Positive Monotest Control Positive (Positive)
== END 2022-04-14 15:12 | disposition home or self-care (01) ==
PROVIDERS: Emergency Provider Emergency Medicine; PCP Emergency Medicine
DX: J02.9 Acute pharyngitis, unspecified (principal); Z20.822 Contact with and (suspected) exposure to COVID-19
CPT/HCPCS: 36415; 86308; 87081; 87636; 87880; 99283

== ENCOUNTER 2022-08-23 17:57 | Outpatient (CLI) | payer OTHER, SELFPAY ==
--- NOTE | ~2022-08-23 | MM_ITS ---
EXAMINATION: MM screening [facility] BI w mio HISTORY: Screening TECHNIQUE: Craniocaudal and mediolateral oblique 3-D tomosynthesis images were obtained and synthetic 2-D images were generated. CAD analysis was submitted and interpreted. COMPARISON: Comparison to multiple prior studies sequentially, with oldest reviewed study dated 04/28. BREAST PARENCHYMAL COMPOSITION: There are scattered areas of fibroglandular density. FINDINGS: There is no evidence of suspicious mass, calcification, or architectural distortion to sugg est malignancy in either breast. There has been no suspicious interval change. IMPRESSION: 1. No mammographic evidence of malignancy. 2. Recommend routine screening mammography in one year. BI-RADS Category 1: Negative Reviewed, dictated and finalized at location A.
== END 2022-08-23 17:58 | disposition home or self-care (01) ==
PROVIDERS: PCP Emergency Medicine; Visit Provider Nurse Practitioner Obstetrics & Gynecology
DX: Z12.31 Encounter for screening mammogram for malignant neoplasm of breast (principal)
CPT/HCPCS: 77063; 77067

== ENCOUNTER 2022-12-25 17:29 | Emergency (ER) | payer OTHER, SELFPAY ==
--- NOTE | 2022-12-25 17:39 | PC.NURSE ---
in br to obtain ua spec.
[2022-12-25 17:45] VITALS: BP 133/76; PULSE 92; RESP 16; TEMP 36.7; O2SAT 100
--- NOTE | 2022-12-25 18:08 | ED.GENADULT ---
HPI - General Adult General Chief complaint: Urogenital-Female Stated complaint: urinary issue Source: patient Mode of arrival: ambulatory Limitations: no limitations History of Present Illness HPI narrative: Patient presents for evaluation of dysuria since yesterday. She indicates she has had some episodes where she has noted some blood on the tissue when wiping after urination. She also started her menstrual period today. no fever, chills, nausea, vomiting, abdominal of vaginal discharge. She purchased some Azo. She has no other symptoms at the present time. Related Data Home Medications Medication Instructions Recorded Confirmed gabapentin 300 mg capsule 300 mg PO DAILY 05/18/21 04/13/22 meloxicam 7.5 mg tablet 7.5 mg PO DAILY 05/18/21 04/13/22 omeprazole 20 mg capsule,delayed 20 mg PO DAILY 08/17/21 04/13/22 release famotidine 40 mg tablet 40 mg PO DAILY 04/13/22 04/13/22 Allergies Allergy/AdvReac Type Severity Reaction Status Date / Time No Known Allergies Allergy Verified 12/25/22 17:58 Review of Systems Review of Systems: CONSTITUTIONAL: Denies fever, chills, or sweats. EYES: Denies visual changes, redness, or discharge. ENT: Denies rhinorrhea, congestion, sore throat, or otalgia. CARDIOVASCULAR: Denies chest pain, palpitations, or edema. RESPIRATORY: Denies cough or dyspnea. GASTROINTESTINAL: Denies abdominal pain, nausea, vomiting, or diarrhea. GENITOURINARY: reports dysuria and some blood on the tissue when wiping after urination SKIN: Denies rash or itching. MUSCULOSKELETAL: Denies back pain, joint pain, or myalgia. NEUROLOGIC: Denies headache, numbness, dizziness, or weakness. PSYCHIATRIC: Denies anxiety or depression. [facility] Past Medical History Medical History No pertinent past medical history Surgical History Surgical History No pertinent past surgical history Family History Family History Mother Hypertension Social History Social History Smoking status: Never smoker Alcohol intake: current Substance use: current Substance use type: marijuana Living arrangements: with family Gender identity (if verbalized by the patient): Female Sexual Orientation (if Verbalized by the Patient): Straight or Heterosexual Spiritual care concerns: No Exam Narrative: GENERAL: Well-appearing, well-nourished, and in no acute distress. HEAD: Normocephalic, atraumatic. EYES: PERRLA and EOMI. ENT: Nares clear, no rhinorrhea or epistaxis. Mucous membranes moist. Oropharynx without tonsillar hypertrophy exudate or other lesions. Bilateral TMs pearly guerrero nonbulging NECK: Supple. No adenopathy or masses. No carotid bruits or JVD CHEST: Clear to auscultation. No respiratory distress. No wheezes rales or rhonchi HEART: Regular rate and rhythm. No murmur heard. Normal peripheral pulses. ABDOMEN: Soft, nontender, nondistended, normal active bowel sounds. BACK: no CVA tenderness EXTREMITIES: Normal range of motion. No edema. SKIN: Warm, dry, no rash. NEURO: No focal deficits. Alert and oriented x3. PSYCH: Normal mood and affect. Course Course Emergency Course: This is a 37-year-old female who presented for evaluation of dysuria. Urine today is consistent with UTI. Will treat with Macrobid. Continue azo. Increase hydration. Follow up with primary provider. Will send urine for culture. Go to the emergency department for worsening symptoms. Patient is in agreement with plan of care. Level of Care: Express Care Visit Vital Signs Vital signs: Vital Signs Temperature 36.7 C 12/25/22 17:45 Pulse Rate 92 12/25/22 17:45 Respiratory Rate 16 12/25/22 17:45 Blood Pressure 133/76 12/25/22 17:45 Pulse Oximetry 100
== END 2022-12-25 18:10 | disposition home or self-care (01) ==
PROVIDERS: Emergency Provider Nurse Practitioner; PCP Emergency Medicine
DX: N30.01 Acute cystitis with hematuria (principal); F12.90 Cannabis use, unspecified, uncomplicated
CPT/HCPCS: 81003; 87077; 87086; 87186; 99213; G0463

== ENCOUNTER 2023-08-29 13:09 | Outpatient (CLI) | payer BC, SELFPAY ==
--- NOTE | ~2023-08-29 | MM_ITS ---
EXAMINATION: MM screening [facility] BI w mio HISTORY: Screening TECHNIQUE: Craniocaudal and mediolateral oblique 3-D tomosynthesis images were obtained and synthetic 2-D images were generated. CAD analysis was submitted and interpreted. COMPARISON: Comparison to multiple prior studies sequentially, with oldest reviewed study dated 04/28. BREAST PARENCHYMAL COMPOSITION: Dense: The breasts are heterogeneously dense, which may obscure small masses FINDINGS: There is no evidence of suspicious mass, calcification, or architectural distortion to sugg est malignancy in either breast. There has been no suspicious interval change. IMPRESSION: 1. No mammographic evidence of malignancy. 2. Recommend routine screening mammography in one year. BI-RADS Category 1: Negative Reviewed, dictated and finalized at location A.
== END 2023-08-29 13:10 | disposition home or self-care (01) ==
LOC: CHSIMG 13:14
PROVIDERS: PCP Emergency Medicine; Visit Provider Nurse Practitioner Obstetrics & Gynecology
DX: Z12.31 Encounter for screening mammogram for malignant neoplasm of breast (principal)
CPT/HCPCS: 77063; 77067

== ENCOUNTER 2023-11-15 08:54 | Outpatient (CLI) | payer BC, SELFPAY ==
--- NOTE | ~2023-11-15 | MR_ITS ---
Procedure: MR lumbar spine wo con Ordering provider: Alfonzo Patel MD History: . M54.41 - Lumbago with sciatica, right side . Comparison: None. Technique: MRI lumbar spine without contrast. FINDINGS: SPINAL CORD: Normal. The conus ends at the level of L1. VERTEBRAL BODIES: Normal height and alignment. No compression fracture. The marrow signal shows hyper intense signal on all sequences.. DISK SPACES: Degenerative disc disease at the level of L5-S1. STENOSIS: None. Annulus tear at the level of L5-S1. Diffuse disc bulge with bilateral narrowing of the foramina and w ith root compression.. PARASPINOUS SOFT TISSUES: Normal. IMPRESSION: No compression fracture or stenosis of the lumbar spine. Degenerative disc disease at the level of L5-S1 with narrowing of the foramina and with bilateral ner ve compression. Hyperintense signal of the bone marrow in all sequences which may indicate marrow reconversion. No ch elkin from previous examination. Reviewed, dictated and finalized at location A. IMPRESSION: No compression fracture or stenosis of the lumbar spine. Degenerative disc disease at the level of L5-S1 with narrowing of the foramina and with bilateral nerve compression. Hyperintense signal of the bone marrow in all sequences which may indicate sam ow reconversion. No change from previous examination.
== END 2023-11-15 08:55 ==
LOC: MICIMG 08:55
PROVIDERS: PCP Emergency Medicine; Visit Provider Emergency Medicine
DX: G89.29 Other chronic pain (principal); M54.41 Lumbago with sciatica, right side; M51.37 Other intervertebral disc degeneration, lumbosacral region
CPT/HCPCS: 72148

== ENCOUNTER 2024-02-01 13:30 | Outpatient (RCR) | payer BC, SELFPAY ==
--- NOTE | 2023-12-20 15:19 | PTOPEVAL1 ---
Assessment and note entered by Anni Chandler, PT Evaluation Information Assessment Status Evaluation Diagnosis M54.41, G89.29 ICD-10 Condition Codes (PT) M54.16,Weakness R53.1 Subjective Information Pt reports this has been going on for years, received the nerve ablation from pain management clinic last year, noticed some relief from pain but only lasted approx. 6 months; states an exacerbation happened last February 2023, that is about the time that the ablation wore off. Denies any recent fall or trauma. Reports pain and stiffness feel worse in the morning, throbbing and achiness increased at the end of the day before she goes to bed. Bending over to put lower body dressing, picking things up from the floor, aggravates the pain. States she takes Ibuprofen and uses heating pad, does not seem to find relief. Pain radiates down to BLE R > L. Patient personally wants to achieve improvement in core strength, ability to perform bending and other activities without pain. Reported Pain Level Pain Score 6: Self Report Additional Pain Score Comments extension biased back pain. flexion makes pain worse Assessment PT Clinical Summary Pt is a 38 yo female patient who presents to therapy with c/o pain to B lowback area with sciatica, symptoms affecting RLE > LLE; MRI results show Degenerative disc disease at the level of L5-S1 with narrowing of the foramina and with bilateral nerve compression, Annulus tear at the level of L5-S1, Diffuse disc bulge with bilateral narrowing of the foramina. Demos weakness to abdominal and hip muscles, postural deficits, generalized muscle tightness and guarding resulting to significant difficulty with performing ADLs, IADLs, ambulation nick on uneven surfaces and up/down stairs. Plan of Care Interventions Electrical Stimulation,Gait Training,Hot Pack/Cold Pack,Intermittent Compression,Manual Therapy, Mechanical Traction,Neuro Re-education,Patient/ Caregiver Education,Therapeutic Activities, Therapeutic Exercise,Ultrasound Other Interventions Dry Needling, IASTM PT Services Indicated Yes Treatment Frequency and 2x/wk x 10 visits Duration These treatments will address the objective and functional deficits as defined above. The patient will be advanced safely and appropriately in order for the patient to progress towards his/her prior level of function. Additional exercises will be introduced and as well as a comprehensive home exercise program upon discharge, if needed, ?to ensure carryover of functional gains achieved in the clinic. This treatment plan has been reviewed and agreement upon by the patient.
--- NOTE | 2024-01-16 12:49 | PCPTNOTE ---
No call no show, reason unknown. AKAllegra
--- NOTE | 2024-01-24 12:08 | OPREHPOC ---
Outpatient Therapy Plan of Care This is a Multidisciplinary Plan of Care that may contain components documented by all disciplines (PT, OT, and ST.) PT Problem 1 PT Problem #1 Knowledge Deficit PT Goal 1 Goal / Goal Update Pt will demo core exercises, lumbar stabilization and BLE strengthening, indep Target Visit 10 Progress Met PT Goal 2 Goal / Goal Update 01-24-24: progress met goal continue towards goal Target Visit 15 PT Problem 2 PT Problem #2 Pain PT Goal 1 Goal / Goal Update Pt will report 0-1/10 at worst when performing bending, standing, walking, stairs tasks. Target Visit 10 Progress Not Met PT Goal 2 Goal / Goal Update 01-24-24: progress goal not met NEW GOALS: 1* pain rating at worst of 4/10 2* self assessment Oswestry rating of 32% limitation in activity 3* radicular pain in R and L LE to knees at worst Target Visit 15 PT Problem 3 PT Problem #3 Impaired Range of Motion PT Goal 1 Goal / Goal Update Pt will demo 10-20 deg increase in lumbar ROMs to increase mobility. Target Visit 10 Progress Met PT Goal 2 Goal / Goal Update 01-24-24: progress met goals discontinue PT Problem 4 PT Problem #4 Impaired Functional Mobil PT Goal 1 Goal / Goal Update Pt will demo 1 leg standing x 15-20 sec each side to improve BLE strength and improve safety with ambulation tasks. Pt will go up/down stairs carrying upto 10# object with proper body mechanics and without increased pain. Target Visit 10 Progress Met PT Goal 2 Goal / Goal Update 01-24-24: progress met goals NEW GOALS: 1* mat strengthening exercises x 20 reps with good stability 2* pt perform sitting ball exercises x 10 reps with good trunk stability Target Visit 15
--- NOTE | 2024-01-24 12:08 | PTOPPROG ---
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 PAIN: range in the past week 0-8/10; R and L lumbar, intermittent R and L numb and tingling to toes; increase pain: when first wake up in the morning, end of day; bending forward, coughing sneezing decrease pain with moving, stretching, heat, stim, massage not taking any pain meds for back; is taking gabapentin --helps some, have less numbness and tingling tramadol not help, not taking over the counter meds Assessment PT Clinical Summary Barb has received 7 PT sessions. She did not show for 1 appointment. She has a neurosurgeon appointment next month. Compared to the initial evaluation: pain from 4-10/10 to 0-8/10; radicular pain is intermittent into both LE's; self assessment with Oswestry rating from 36% to 40% limitation in activity level. Increase flexibility of R and L piriformis hamstring supine stretch does not increase pain; increase trunk and hip strength; modalities decrease pain. Education for HEP and posture. The goals were partially met. Continue PT treatment. Plan of Care Interventions Electrical Stimulation,Hot Pack/Cold Pack,Manual Therapy,Mechanical Traction,Neuro Re-education, Patient Education,Therapeutic Activities, Therapeutic Exercise,Ultrasound,Other Other Interventions IASTM, PT Services Indicated Yes Treatment Frequency and 1-2x/wk for 8 visits Duration These treatments will address the objective and functional deficits as defined above. The patient will be advanced safely and appropriately in order for the patient to progress towards his/her prior level of function. Additional exercises will be introduced and as well as a comprehensive home exercise program upon discharge, if needed, ?to ensure carryover of functional gains achieved in the clinic. This treatment plan has been reviewed and agreement upon by the patient.
--- NOTE | 2024-01-30 13:09 | PCPTNOTE ---
Call cancelled , no ride. AKAllegra
--- NOTE | 2024-03-13 10:51 | PCPTNOTE ---
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 She then stopped attending therapy. Discharge PT. The goals were not addressed.
== END 2024-03-12 11:01 | disposition home or self-care (01) ==
LOC: ANHPT 13:30
PROVIDERS: PCP Emergency Medicine; Visit Provider Emergency Medicine
DX: M54.41 Lumbago with sciatica, right side (principal); G89.29 Other chronic pain
CPT/HCPCS: 97014; 97110; 97140; 97161; G0283

== ENCOUNTER 2024-02-01 16:35 | Outpatient (CLI) | payer BC, SELFPAY ==
--- NOTE | ~2024-02-01 | CT_ITS ---
EXAMINATION: CT abdomen pelvis wo con DATE: 02/01/2024 16:55 INDICATION: Unspecified abdominal pain. TECHNIQUE: Computed tomography (CT) of the abdomen and pelvis was performed without intravenous contr ast. Automated exposure control and iterative reconstruction technique were employed. The dose-length product was 566.97 mGy-cm. COMPARISON: CT abdomen and pelvis 01/06/2016 FINDINGS: The visualized portions of the lung bases demonstrate mild atelectasis. No pleural effusion . The heart size is normal. No pericardial effusion. There is a small sliding hiatal hernia. The live r, gallbladder, spleen, pancreas, adrenal glands, and kidneys are normal. There is no urolithiasis. T here is an intrauterine device in expected position. There are no dilated loops of bowel. The appendi x is normal. There are no pathologically enlarged lymph nodes. There is no free intraperitoneal fluid . There is severe lower lumbar spondylosis. IMPRESSION: 1. Small sliding hiatal hernia. Reviewed, dictated and finalized at location A.
== END 2024-02-01 16:36 | disposition home or self-care (01) ==
LOC: ANHIMG 16:36
PROVIDERS: PCP Emergency Medicine; Visit Provider Emergency Medicine
DX: R10.9 Unspecified abdominal pain (principal); K44.9 Diaphragmatic hernia without obstruction or gangrene
CPT/HCPCS: 74176

== ENCOUNTER 2024-04-03 10:13 | Outpatient (CLI) | payer BC, SELFPAY ==
--- NOTE | ~2024-04-03 | XR_ITS ---
Lumbosacral Spine: AP and lateral views Clinical History: Pain Findings: The normal lordotic curve is maintained. No fracture or sublocation seen. There is advanced degenerative disc narrowing at L5-S1. No instability seen on flexion or extension views. There is ad vanced facet arthropathy, especially mild to through S1.. The sacroiliac joints are normally outline d. Impression: Moderate degenerative spondylosis, as above. Reviewed, dictated and finalized at location M. 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
== END 2024-04-03 10:14 | disposition home or self-care (01) ==
PROVIDERS: PCP Emergency Medicine; Visit Provider Neurological Surgery
DX: M47.816 Spondylosis without myelopathy or radiculopathy, lumbar region (principal)
CPT/HCPCS: 72110

== ENCOUNTER 2024-09-12 12:42 | Outpatient (CLI) | payer BC, SELFPAY ==
--- NOTE | ~2024-09-12 | MM_ITS ---
EXAMINATION: MM screening jone BI w mio HISTORY: Screening TECHNIQUE: Craniocaudal and mediolateral oblique 3-D tomosynthesis images were obtained and synthetic 2-D images were generated. CAD analysis was submitted and interpreted. COMPARISON: Comparison to multiple prior studies sequentially, with oldest reviewed study dated 04/28. BREAST PARENCHYMAL COMPOSITION: Not dense: There are scattered areas of fibroglandular density. FINDINGS: There is no evidence of suspicious mass, calcification, or architectural distortion to sugg est malignancy in either breast. There has been no suspicious interval change. IMPRESSION: 1. No mammographic evidence of malignancy. 2. Recommend routine screening mammography in one year. BI-RADS Category 1: Negative Reviewed, dictated and finalized at location B.
--- OUTSIDE RECORDS SUMMARY | 2024-09-12 12:57 | XMS_ITS | Data Portability ---
Author Organization Pola [facility] Address [address] [place] [address] Assessment No assessment recorded. Plan of Treatment Reminders Order Date Submit Date Provider Last Modified By Organization Details Last Modified Time Details Appointments None recorded. Lab iron + total iron-bindin g capacity (TIBC), serum 2015 016 [facility], [address] [place], [place] [address] Alex, [address], [place], [address], 6 06:15:14 vitamin B12, serum 2015 016 [facility], [address] [place] [address], [address], [place], [address], 6 06:15:15 ferritin, serum or plasma 2015 016 [facility], [address] [place] [address], [address], [place], [address], 6 06:15:16 folate, serum 2015 016 [facility], [address] [place], [place] [address] [address], [address], [place], [address], 6 06:15:15 retic count, blood 2015 016 [facility], [address] [place], [place] [address] [address], [address], [place], [address], 6 06:15:16 CMP, serum or plasma 2015 016 [facility], [address], [address], [place], [address], 6 08:27:20 TSH + free T4, serum 2015 016 [facility], [address], [address], [place], [address], 6 08:27:20 vitamin B12 + folate, serum or blood 2015 016 [facility], [address] [facility] [address], [address], [place], [address], 6 08:27:21 Referral physical therapy back referral - low back pain/mild djd 2015 016 [facility] Not available 7 05:01:08 gastroenter ologist referral - rectal bleeding/hi gh risk for colon ca 2015 016 [facility] To [facility], [address] [place], [address], 7 05:01:08 Procedures None recorded. Surgeries None recorded. Imaging None recorded. Medication Orders Naprosyn 500 mg tablet 2015 016 [address] [id number], [address] [facility], [place], [place], [id number], 6 11:20:14 omeprazole 40 mg capsule,del ayed release 2015 016 [id number], [address] [facility], [place], [place], [id number], 6 11:20:14 tramadol 50 mg tablet 2015 016 [id number], [address] [facility], [place], [place], [id number], 6 17:12:58 Nexium 20 mg capsule,del ayed release 2015 016 [email or web address] [facility] #[id number], [address] , [place], [place], [id number], 6 17:12:57 Patient TargetsNo targets recorded. Patient Instructions Encounter Date Encounter Id Patient Instructions Last Modified By Organization Details Last Modified Time 11/03/2015 [id number] medical record request* - MRI and Xrays 2013 to present. ATHENAFAX Not available 11/05/2015 12:01:42 Reason for Referral low back pain/mild djd Referring Physician: Jm Bender, Internal Medicine, Encounter Date: 01/13/2016 rectal bleeding/high risk fo r colon ca Referring Physician: Jm Bender, Internal Medicine, Encounter Date: 01/13/2016 Results Created Date Observation Date Name Description Value Unit Range Abnormal Flag Note LastModifiedBy Organization Detail LastModifiedTime 11/03/19 16 11/04/2015 TSH + free T4, serum TSH 0.446 uIU/m L 0.450- 4.500 below low normal Not Available [facility] ([facility]) [address] [place], [address], 11/04/2015 08:27:20 11/03/1911/04/2015 TSH + free T4, serum T4,free(dire ct) 1.11 NG/dL 0.82-1 .77 Not Available [facility] ([facility]) [address] [place], [address], 11/04/2015 08:27:20 11/03/1911/04/2015 CMP, serum or plasm a glucose, serum 91 mg/dL 65-99 Not Available [facility] ([facility]) [address] [place], [address], 11/04/2015 08:27:20 11/03/19 16 11/04/2015 CMP, serum or plasm a BUN 8 mg/dL 6-20 Not Available [facility] ([facility]) [address] [facility] [place], [address], 11/04/2015 08:27:20 11/03/19 16 11/04/2015 CMP, serum or plasm a creatinine, serum 0.98 mg/dL 0.57-1 .00 Not Available [facility] ([facility]) [address] [facility] [place], [address], 11/04/2015 08:27:20 11/03/19 16 11/04/2015 CMP, serum or plasm a eGFR if nonafricn AM 78 mL/mi n/1.7 3 >59 Not Available [facility] ([facility]) [address] [facility] [place], [address], 11/04/2015 08:27:20 11/03/19 16 11/04/2015 CMP, serum or plasm a eGFR if africn AM 90 mL/mi n/1.7 3 >59 Not Available [facility] ([facility]) [address] [facility] [place], [address], 11/04/2015 08:27:20 11/03/1911/04/2015 CMP, serum or plasm a sodium, serum 140 mmol/ L 134-14 4 Not Available [facility] ([facility]) [address] [place], [address], 11/04/2015 08:27:20 11/03/1911/04/2015 CMP, serum or plasm a potassium, serum 4.4 mmol/ L 3.5-5. 2 Not Available [facility] ([facility]) [address] [facility] [place], [address], 11/04/2015 08:27:20 11/03/1911/04/2015 CMP, serum or plasm a chloride, serum 102 mmol/ L 97-108 Not Available [facility] ([facility]) [address] [place], [address], 11/04/2015 08:27:20 11/03/19 16 11/04/2015 CMP, serum or plasm a carbon dioxide, total 21 mmol/ L 18-29 Not Available [facility] ([facility]) [address] [place], [address], 11/04/2015 08:27:20 11/03/19 16 11/04/2015 CMP, serum or plasm a calcium, serum 9.4 mg/dL 8.7-10 .2 Not Available [facility] ([facility]) [address] [place], [address], 11/04/2015 08:27:20 11/03/1911/04/2015 CMP, serum or plasm a phosphorus, serum 2.8 mg/dL 2.5-4. 5 Not Available [facility] ([facility]) [address] [place], [address], 11/04/2015 08:27:20 11/03/1911/04/2015 CMP, serum or plasm a protein, total, serum 7.2 g/dL 6.0-8. 5 Not Available [facility] ([facility]) [address] [place], [address], 11/04/2015 08:27:20 11/03/1911/04/2015 CMP, serum or plasm a albumin, serum 4.5 g/dL 3.5-5. 5 Not Available [facility] ([facility]) [address] [place], [address], 11/04/2015 08:27:20 11/03/1911/04/2015 CMP, serum or plasm a bilirubin, total 0.4 mg/dL 0.0-1. 2 Not Available [facility] ([facility]) [address] [place], [address], 11/04/2015 08:27:20 11/03/1911/04/2015 CMP, serum or plasm a alkaline phosphatase, S 40 IU/L 39-117 Not Available [facility] ([facility]) [address] [facility] [place], [address], 11/04/2015 08:27:20 11/03/19 16 11/04/2015 CMP, serum or plasm a LDH 99 IU/L 119-22 6 below low normal Not Available [facility] ([facility]) [address] [facility] [place], [address], 11/04/2015 08:27:20 11/03/19 16 11/04/2015 CMP, serum or plasm a AST (SGOT) 17 IU/L 0-40 Not Available [facility] ([facility]) [address] [facility] [place], [address], 11/04/2015 08:27:20 11/03/19 16 11/04/2015 CMP, serum or plasm a ALT (SGPT) 17 IU/L 0-32 Not Available [facility] ([facility]) [address] [place], [address], 11/04/2015 08:27:20 11/03/19 16 11/04/2015 CMP, serum or plasm a GGT 9 IU/L 0-60 Not Available [facility] ([facility]) [address] [facility] [place], [address], 11/04/2015 08:27:20 11/03/19 16 11/04/2015 CMP, serum or plasm a cholesterol, total 149 mg/dL 100-19 9 Not Available [facility] ([facility]) [address] [place], [address], 11/04/2015 08:27:20 11/03/1911/04/2015 vitam in B12 + folat e, serum or blood vitamin B12 523 pg/mL 211-94 6 Not Available [facility] ([facility]) [address] [place], [address], 11/04/2015 08:27:21 11/03/19 16 11/04/2015 vitam in B12 + folat e, serum or blood folate (folic acid), serum 13.9 NG/mL >3.0 A SERUM FOLAT E NEGRITO NTRAT ION OF LESS THAN 3.1 NG/ML IS CONSI DERED TO REPRE SENT CLINI THAIS DEFIC IENCY . Not Available [facility] ([facility]) [address] [facility], [place], [address], 11/04/2015 08:27:21 01/13/20 16 01/14/2016 iron + total iron- regina ng capac ity (TIBC ), serum iron bind.cap.(TI BC) 340 ug/dL 250-45 0 Not Available [facility] ([facility]) [address] [facility], [place], [address], 01/14/2016 06:15:14 01/13/20 16 01/14/2016 iron + total iron- regina ng capac ity (TIBC ), serum UIBC 246 ug/dL 131-42 5 Not Available [facility] ([facility]) [address] [facility], [place], [address], 01/14/2016 06:15:14 01/13/20 16 01/14/2016 iron + total iron- regina ng capac ity (TIBC ), serum iron, serum 94 ug/dL 27-159 Not Available [facility] ([facility]) [address] [facility], [place], [address], 01/14/2016 06:15:14 01/13/2001/14/2016 iron + total iron- regina ng capac ity (TIBC ), serum iron saturation 28 % 15-55 Not Available [facility] ([facility]) [address] [place], [address], 01/14/2016 06:15:14 01/13/20 16 01/14/2016 folat e, serum folate (folic acid), serum 10.5 NG/mL >3.0 A SERUM FOLAT E NEGRITO NTRAT ION OF LESS THAN 3.1 NG/ML IS CONSI DERED TO REPRE SENT CLINI THAIS DEFIC IENCY . Not Available [facility] ([facility]) [address] [facility], [place], [address], 01/14/2016 06:15:15 01/13/20 16 01/14/2016 vitam in B12, serum vitamin B12 476 pg/mL 211-94 6 Not Available [facility] ([facility]) [address] [facility], [place], [address], 01/14/2016 06:15:15 01/13/20 16 01/14/2016 mor tin, serum or plasm a ferritin, serum 247 NG/mL 15-150 above high normal Not Available [facility] ([facility]) [address] [facility], [place], [address], 01/14/2016 06:15:16 01/13/20 16 01/14/2016 retic count , blood reticulocyte count 1.6 % 0.6-2. 6 Not Available [facility] ([facility]) [address] [facility], [place], [address], 01/14/2016 06:15:16 11/05/19 16 03/18/2015 x-ray , lumba r spine No observ ation record ed. jose Jordan [address] [facility] [address], [place], [address], 11/09/2015 09:32:17 01/13/20 16 01/13/2016 CT, abdom en and pelvi s No observ ation record ed. Not Available 2015 11:52:24 Result Notes None recorded. Problems Name Problem SNOMED Code Status Onset Date Resolution Date Notes Provider Name and Address Organization Details Recorded Time Degeneration of intervertebral disc 24096794 Active Jm Bender MD Attn: Whitley cornell,[address], [place], [address], [facility] - [facility] 6 11:20:14 Paresthesia of upper limb 18454422 Active Jm Bender MD Attn: Whitley cornell[address] [facility], [place], [address], [place] - [facility] 6 18:22:08 Gastroesophage al reflux disease 874767120 Active Jm Bender MD Attn: Whitley cornell,[address] [facility], [place], [address], [place] [facility] 6 11:20:14 Abnormal thyroid hormone 290092717 Active Jm Bender MD Attn: Jeffersonavi cornell,[address] [facility], [place], [address], [place] - [facility] 6 18:22:08 Diarrhea 29332975 Active Jm Bender MD Attn: Whitley cornell,[address] [facility], [place], [address], [place] [facility] 6 18:22:08 Rectal hemorrhage 39640978 Active Jm Bender MD Attn: Jeffersonavi cornell,[address] [facility], [place], [address], [place] - [facility] 6 11:20:14 Anemia 321718758 Active Jm Bender MD Attn: Whitley cornell,[address] [facility], [place], [address], [place] [facility] 6 11:20:14 Low back pain 397171014 Active Jm Bender MD Attn: Jeffersonavi cornell,[address] [facility], [place], [address], [place] - [facility] 6 11:20:14 Problem Notes None recorded. Procedures Surgical History Date Name Laterality Status Provider Name and Address Organization Details Recorded Time Other completed Eloisa Tucker MA [place] - [place] 2015 16:28:27 Imaging Results Imaging Date Name Status [facility]Modified by [facility] Details LastModified Time 03/18/2015 x-ray, lumbar spine completed [facility] Julian [address], [place], [address], 11/09/2015 09:32:17 01/13/2016 CT, abdomen and pelvis completed [email or web address] Information not available 01/16/2016 11:52:24 Procedure Notes None recorded. Medical Equipment None Reported. Medications Name Sig Start Date Stop Date Status Note LastModified by Organization Details LastModified Time metronidazole 500 mg tablet Take 1 tablet every 8 hours by oral route. active Not Available Not Available No t Available sulfamethoxazol e 800 mg-trimethoprim 160 mg tablet Take 1 tablet every 12 hours by oral route. active Not Available Not Available No t Available omeprazole 40 mg capsule,delayed release TAKE 1 CAPSULE BY MOUTH EVERY DAY BEFORE A MEAL active Not Available Not Available No t Available tramadol 50 mg tablet Take 1 tablet every 8 hours by oral route as needed. 2015 active Not Available Not Available Not Avai lable Zantac 150 mg tablet Take 1 tablet twice a day by oral route. active Not Available Not Available No t Available pantoprazole 40 mg tablet,delayed release TAKE 1 TABLET BY MOUTH EVERY DAY BEFORE MEALS active Not Available Not Available No t Available Naprosyn 500 mg tablet Take 1 tablet twice a day by oral route with meals. 2015 active Not Available Not Available Not Avai lable esomeprazole magnesium 20 mg capsule,delayed release TAKE 2 CAPSULE BY MOUTH EVERY DAY active Not Available Not Available No t Available Multiple Vitamin, Womens tablet Take by oral route. active Not Available Not Available No t Available biotin active Not Available Not Availa ble Not Available TriNessa (28) active Not Available Not Available Not Available Probiotic active Not Available Not Merry ilable Not Available Vitals Date Recorded Body weight Heart rate Body mass index (BMI) Body height Body temperature Systolic blood pressure Diastolic blood pressure Provider Name and Address Organization Details Last Updated DateTime 6 13467.6 266 g 70 /min 30.9 kg/m2 162.56 cm 98 [degF] 112 mm[Hg] 76 mm[Hg] Eloisa Tucker MA [facility] 6 16:28:27 Date Recorded Body mass index (BMI) Body height Body temperature Body weight Systolic blood pressure Diastolic blood pressure Provider Name and Address Organization Details Last Updated DateTime 6 30.7 kg/m2 162.56 cm 98 [degF] 83593.0 3423 g 104 mm[Hg] 72 mm[Hg] Eloisa Tucker MA [facility] 6 17:18:26 Date Recorded Body weight Body temperature Body mass index (BMI) Body height Systolic blood pressure Diastolic blood pressure Provider Name and Address Organization Details Last Updated DateTime 6 68100.0 3423 g 98 [degF] 30.7 kg/m2 162.56 cm 102 mm[Hg] 78 mm[Hg] Eloisa Neil MA [place] [facility] 6 10:35:51 Social History Question Answer Notes LastModified by Organizat ion Details LastModified Time Tobacco Smoking Status Former Smoker Eloisa Tucker MA null, [place] [facility] 11/03/2015 16:28:27 Do You Have An Advance Directive? No Information not available 11/03/2015 What Is Your Level Of Alcohol Consumption? Occasional Information not available 11/03/2015 What Is Your Level Of Caffeine Consumption? Occasional Information not available 11/03/2015 How Much Tobacco Do You Chew? None Information not available 11/03/2015 What Type Of Diet Are You Following? REGULAR Information not available 11/03/2015 Which Illicit Or Recreational Drugs Have You Used? 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 No Information not available 11/03/2015 Hard Of Hearing Or Deaf In One Or Both Ears? No Information not available 11/03/2015 Legally Blind In One Or Both Eyes? No Information no t available 11/03/2015 Marital Status Single Informatio n not available 11/03/2015 Performs Monthly Self-breast Exam? Yes Information no t available 11/03/2015 Seat Belts Used Routinely Yes Information not available 11/03/2015 Smoke Alarm In Home Yes Information not available 11/03/2015 General Stress Level Low Information not available 11/03/2015 Do You Use Sunscreen Routinely? Yes Information not available 11/03/2015 Sex: Unknown Functional Status Question Answer Note LastModified by Organization D etails LastModified Time What is your exercise level? None Information not available 11/03/2015 Mental Status None recorded. Family History Relationship Description Onset Age of this Age Resolved Age Notes LastModified by Organization Details LastModified Time Mother Hypertensive disorder mroyma Not available 2015 16:28:27 Sister Hypertensive disorder mroyma Not available 2015 16:28:27 Medical History Condition Response Acid Reflux (GERD) Y Gynecological HistoryNo gynecological history recorded. Obstetrics History GPAL:G 0 P 0 0 0 0 Past Encounters Encounter ID Performer Location Encounter Start Date Encounter Closed Date Diagnosis/Indication Diagnosis SNOMED-CT Code Diagnosis ICD10 Code Diagnosis Note [id number] Mishel Almeida is [facility] ([facility]ult [facility]) [address] [place] [phone] 11/03/2015 15:19:32 11/03/2015 17:16:05 Paresthesia of upper limb 47268290 R20.2 Gastroesop hageal reflux disease 916815850 K21.9 Abnormal t hyroid hormone 321156133 R94.6 Degenerati on of intervertebral disc 63735741 M51.9 [id number] MD [facility] ([facility]ult [facility]) [address] [place] [phone] 12/10/2015 16:58:00 12/10/2015 17:58:02 Degeneration of intervertebral disc 61115999 M51.9 Demonstrat ed 4 exercises for lower back and abdomen. Paresthesi a of upper limb 25092829 R20.2 Improved Diarrhea 25975633 R19.7 Pt will notify me if diarrhea continues. She has relatives recently diagnosed with Crohn's disease. Abnormal t hyroid hormone 949319710 R94.6 Will get earlier lab results from [facility] [id number] Mishel Almeida is [facility] ([facility]ult [facility]) [address] [place] [phone] 01/13/2016 10:15:49 01/13/2016 11:22:42 Rectal hemorrhage 93343566 K62.5 Anemia 543570251 D64.9 Degenerati on of intervertebral disc 32170426 M51.9 Demonstrat ed 4 exercises for lower back and abdomen. Low back pain 753701887 M54.5 Gastroesop hageal reflux disease 490237093 K21.9 Health Concerns Section Related Observation LastModified by Organization Detai ls LastModified Time None Recorded Concern Status LastModified by Organization Details LastModified Time None Recorded Advance Directives Directive N: Payers Encounter Date Sequence Insurance Name Policy Number Policy Mayes Covered Member ID Mayes Member ID Guarantor Name 11/03/2015 1 [facility] [id number] Barb Marino [id number] Barb Marino 12/10/2015 1 [facility] [id number] Barb Marino [id number] Barb Marino 01/13/2016 1 [facility] [id number] Barb Marino [id number] Barb Marino Notes Date Note Type Note Provider Name and Address Organization Details Recorded Time 11/03/2015 text/html Has had numbness and tingling in left arm for two months. Pt has history of degenerative arthritis in lower back. Arm sx followed episode of neck pain which has since resolved. No benefit from muscle relaxer, NSAID and oral prednisone. Hx of abnormal thyroid function( suggestive oh hypothyroidism) Jm Bender MD Attn: Accounting,[address] [facility], [place], [address], [facility] - [facility] 11/03/2015 17:15:30 12/10/2015 text/html Abnormal sensati on in arms has improved. She has however had diarrhea over the past three weeks with gradual improvement. Her back pain persists. Jm Bender MD Attn: Accounting,[address] [facility], [place], [address], [place] 12/10/2015 18:22:17 01/13/2016 text/html Blood in the stool. Pt has fm hx colon ca and crohn's disease. CT abd shows unclear rectal abnormality. Pt anemic. Back pain persists. Jm Bender MD Attn: Accounting,[address] [facility], [place], [address], [place] 01/13/2016 11:20:22 OBGyn Episode No OBEpisode recorded.
--- OUTSIDE RECORDS SUMMARY | 2024-09-12 12:57 | XMS_ITS | Clinical Summary ---
Author Organization [facility] Address [address] [place] [address] Care Team Providers Care Welder Apprentice Name Role Phone Alfonzo Patel MD Primary Care Provider [phone] Allergies No known active allergies Medications SLIPPERY ELM BARK OR Take by mouth daily. Active mulitvitamin (THERA) tablet Take 1 tablet by mouth daily. Active cetirizine (ZYRTEC) 10 MG chewable tablet Chew 1 tablet (10 mg total) by mouth daily. Active Ferrous Sulfate (IRON) 28 MG Tab Take 1 tablet by mouth daily. Active BIOTIN MAXIMUM OR Take 1 tablet by mouth daily. Active probiotic (FLORAJEN3) Cap capsule Take 1 capsule by mouth daily with breakfast. Active VITAMIN D, ERGOCALCIFEROL, OR Take by mouth daily. Active vitamin C (ASCORBIC ACID) 1000 MG tablet Take 0.5 tablets (500 mg total) by mouth daily. Active polycarbophil (FIBERCON) 625 MG tablet Take 1 tablet (625 mg total) by mouth daily. Active CHLOROPHYLL OR Take 1 tablet by mouth daily. Active MANDI ROOT OR Take 1 tablet by mouth daily. Active Bioflavonoid Products (VANGIE-C OR) Take 1 tablet by mouth daily. Active oxyCODONE-acetamin ophen (PERCOCET) 5-325 MG tabletIndications: Acute Pain < 7 Day Supply Take 1 tablet by mouth every 4 (four) hours as needed. Indications: Acute Pain < 7 Day Supply 20 tablet 05/10/20 24 Active ondansetron (ZOFRAN-ODT) 4 MG disintegrating tablet Take 1 tablet (4 mg total) by mouth every 8 (eight) hours as needed for Nausea. 20 tablet 05/10/20 24 Active simethicone (MYLICON) 125 MG chewable tablet Chew 1 tablet (125 mg total) by mouth every 6 (six) hours. 120 tablet 11 05/10/20 24 Active traMADol (ULTRAM) 50 MG tabletIndications: Acute Pain < 7 Day Supply Take 1 tablet (50 mg total) by mouth every 6 (six) hours as needed. Indications: Acute Pain < 7 Day Supply 28 tablet 05/10/20 24 Active naloxone (NARCAN) 4 MG/0.1ML nasal spray 1 spray by Nasal route as needed for Opioid reversal. may repeat every 2 to 3 minutes in alternating nostrils until medical assistance becomes available 1 each 05/10/20 24 025 Active Active Problems Problem Noted Date Diagnosed Date GERD (gastroesophageal reflux disease) 4 Family History Medical History Relation Comments No Known Problems Father Cancer Mother Mastectomy Mother Relation Status Comments Father Alive Mother Alive Social History Tobacco Use Types Packs/Day Years Used Date Smoking Tobacco: Never Smokeless Tobacco: Never Tobacco Cessation:Counseling Given: Not Answered Alcohol Use Standard Drinks/Week Comments Yes 5 (1 standard drink = 0.6 oz pur e alcohol) [facility] Utilities Answer Date Recorded In the past 12 months has e [employer], gas, oil, or water [employer] threatened to shut off services in your home? No 05/09/2024 Humiliation, Afraid, Rape, and Kick questionnair e Answer Date Recorded Within the last year, have y ou been afraid of your partner or ex-partner? No 05/09/2024 Within the last year, have y ou been humiliated or emotionally abused in other ways by your partner or ex-partner? No Within the last year, have y ou been kicked, hit, slapped, or otherwise physically hurt by your partner or ex-partner? No 05/09/2024 Within the last year, have y ou been raped or forced to have any kind of sexual activity by your partner or ex-partner? No 05/09/2024 Social Connection and Isolation Panel [NHANES] A nswer Date Recorded In a typical week, how many times do you talk on the phone with family, friends, or neighbors? Once a week 05/09/2024 Frequency of Social Gatherings with Friends and Family Not on file 05/09/2024 Attends Judaism Services Not on file 05/09 Active Member of Clubs or Organizations Not on f ile 05/09/2024 Attends Club or Organization Meetings Not on hali e 05/09/2024 Marital Status Not on file 05/09/2024 Overall Financial Resource Strain (CARDIA) Answe r Date Recorded How hard is it for you to pa y for the very basics like food, housing, medical care, and heating? Not very hard 05/09/2024 [facility] [place] [facility] Occupat ional [facility] - Occupational Stress Questionnaire Answer Date Recorded Do you feel stress - tense, restless, nervous, or anxious, or unable to sleep at night because your mind is troubled all the time - these days? Only a little 05/09/2024 Hunger Vital Sign Answer Date Recorded Within the past 12 months, y ou worried that your food would run out before you got the money to buy more. Never true 05/09/20 24 Within the past 12 months, t he food you bought just didn't last and you didn't have money to get more. Never true 05/09/2024 PRAPARE - Transportation Answer Date Re corded In the past 12 months, has l ack of transportation kept you from medical appointments or from getting medications? No 04/28 In the past 12 months, has l ack of transportation kept you from meetings, work, or from getting things needed for daily living? No 05/09/2024 Housing Stability Vital Sign Answer Sudhir e Recorded In the last 12 months, was t here a time when you were not able to pay the mortgage or rent on time? No 05/09/2024 In the past 12 months, how m any times have you moved where you were living? 0 05/09/2024 At any time in the past 12 m [facility], were you homeless or living in a long-term (including now)? No 05/09/2024 Comments No Sex and Gender Information Value Date Recorded Sex Assigned at Not on file Legal Sex Female 9:39 AM SKIP TENDER Gender Identity Not on file Sexual Orientation Not on file Last Filed Vital Signs Vital Sign Reading Time Taken Comments Blood Pressure 102/54 05/10/2024 11:09 AM SKIP TENDER Pulse 70 05/10/2024 11:09 AM SKIP TENDER Temperature 36.8 C (98.2 F) 05/10/2024 11:09 AM SKIP TENDER Respiratory Rate 16 05/10/2024 11:09 AM SKIP TENDER Oxygen Saturation 96% 05/10/2024 11:09 AM SKIP TENDER Inhaled Oxygen Concentration - - Weight 91.4 kg (201 lb 8 oz) 05/09/2024 7:13 AM SKIP TENDER Height 165.1 cm (5' 5 ) 05/09/2024 7:13 AM SKIP TENDER Body Mass Index 33.53 05/09/2024 7:13 AM SKIP TENDER Plan of Treatment Health Maintenance Due Date Last Done Comments Cervical Cancer Screening Pa p Smear (Age 30 to 64) Every 3 Years 1984 Annual Physical 11/08/1987 Hepatitis C 2002 Cervical Cancer Screening Pa p with HPV Testing (Age 30 to 64) Every 5 Years 2014 Cervical Cancer Screening with HPV 2014 Hepatitis B Vaccines (2 of 3 - 19+ 3-dose series) 09/21/2017 08/24/2017 COVID-19 Vaccine (2 - 2023-2 5 season) 2024 08/31/2020 PHQ-2 (Physician [facility]) 05/29/2024 DTaP, Tdap and Td Vaccines ( 2 - Td or Tdap) 08/25/2027 08/24/2017 HPV Vaccines Aged Out No longer eligi ble based on patient's age to complete this topic Meningococcal B Vaccine Aged Out No l onger eligible based on patient's age to complete this topic Meningococcal Vaccine Aged Out No chiquis isaías eligible based on patient's age to complete this topic Pneumococcal Vaccine: Pediat rics (0 to 5 Years) and At-Risk Patients (6 to 49 Years) Aged Out No longer eligi ble based on patient's age to complete this topic RSV Immunizations Under 20 Months Aged Out No longer eligible based on patient's age to complete this topic Goals Goal Patient Goal Type Associated Problems Recent Progress Patient-Stated? 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
--- OUTSIDE RECORDS SUMMARY | 2024-09-12 12:57 | XMS_ITS | Continuity of Care Document ---
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 vaccinated. Pt states that work will not let her return to work until negative COVID testing result colon Pt has GERD. Pt takes omeprazole. Pt is getting omeprazole from GI now. Pt told me she had normal colonoscopy early this year back pain1 Pt has chronic i ntermittent low back pain with mild sciatica and leg numbness ,Pt has DDD. Pt tried and failed NSAID. pt is on ultram PRN now. Pt denies any loss of bladder or bowel control. Pt tried neurontin for only short period which did not help Pt wants to try neurontin again .Pt also failed injection. Pain management referred her to neurosurgery but was told that she needs a referral from PCP COVID Pt states that s he was exposed to COVID 3 days ago. Pt was in the car with a friend who has mild cough and later diagnosed positive for COVID. Pt c/o mild dry cough with loss of taste and smell since yesterday Pt denies any fever, chill, sob. Pt denies any hemoptysis Pt did receive COVID vaccination already pt wants COVID testing back pain1 Pt has chronic i ntermittent low back pain with mild sciatica and leg numbness ,Pt has DDD. Pt is seeing pain management and is getting injections and PT. Pt states that the injection really has not helped her very much for her back pain Pt priyanka any loss of bladder control. Pt is on mobic by pain management and she takes ultram PRn. Pt had another MRI done which showed moderate spondylosis with progression of now moderate disc height loss at L5-S1. Pt denies ay loss of bladder or bowel control elbow pain1 pt c/o intermitt ent left elbow pain for 2 months Pt denies any injury Pt denies any elbow redness or swelling Pt denies any neck pain or radiculopathy .pt denies any radiation of pain down to left forearm or hand Pt denies any numbness or tingling or left forearm or hand. Pt denies any cold extremity or any finger discoloration. 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 Pt c/o mild dull ache anemia1 pt has mild anem ia. Pt has some bright red blood per rectum. Pt denies any weight loss Pt has not done colonoscopy yet due to scheduling issue . viral Pt states that h er co-worker tested positive for COVID-19 two days ago and she worked with her closely last Monday pt denies any symptoms .Pt denies any fever, chill, cough, sob, loss of taste and smell. pt wants to be tested. Pt denies any fatigue, headache. back pain1 Pt has chronic i ntermittent low back pain with mild sciatica and leg numbness ,Pt has dDD. Pt is seeing pain management and is getting injections and PT Pt states that the injection really has not helped her very much for her back pain Pt priyanka any loss of bladder control anemia1 Pt has mild anem ia with high ferritin Pt had normal liver ultrasound Pt is seeing hematology currently.. Pt notices mild bright red blood per rectum recently and she is seeing GI and will do colonoscopy soon. GERD1 Pt has chronic G ERD Pt takes omeprazole daily .Pt failed pepcid Pt has daily GERD without omeprazole ferritin1 Pt has persisten t high ferritin Pt has tanner with hematology tomorrow. Pt also is mildly anemic. Pt denies any blood loss Pt denies any heavy period. pt denies any fatigue or sob glocuse Pt has borderlin e high glucose Pt denies any polyuria, polydipsia. viral Pt states that h er nephew was tested positive for COVID last week and she was with him last week. Pt denies any fever, cough, sob loss of taste and smell. Pt just feels mild sinus congestion back pain1 Pt has chronic l ow back pain. Pt denies any worsening pain, pt denies any loss of bladder control. Pt is seeing pain management and will do injection soon Physical Pt needs annual physical. Pt has chronic GERD Pt failed pepcid .Pt takes omeprazole PRn and doing ok. Pt needs refill. Pt denies any abd pain. Pt has history of high ferritin pt has chronic low back pain ,Pt has mild sciatica and leg numbness ,Pt denies any loss of bladder control Pt has 5/10 pain Her MRI showed DDD. Pt has elevated ferritin PT denies any abd pain or jaundice Pt does not drink much alcohol. Pt denies any neck pain or dysphagia. thyroid1 Pt has slightly suppressed TSH Her T4 is normal Pt denies any chest pain or headache anemia1 Pt no longer ane sukh. Pt denies any blood loss. vitamin D Pt has borderlin e low D ferritin Pt has mildly hi gh ferritin. Her hemoglobin is normal back pain1 Pt has chronic l ow back pain Pt did not do PT or try neurontin or do MRi. pt has mild sciatica and leg numbness. pt denies any loss of bladder control GERD1 Pt has GERD pt f yuliet zantac. Pt had benign EGD Pt takes nexium OTC. Pt denies any abd pain or nausea. PHysical Pt needs annual physical pt has chronic low back pain with left sciatica for years. pt has DDD on MRi several years ago pt notices tingling and numbness left thigh and left leg for 4 weeks. Pt denies any injury pt denies any leg weakness. Pt denies any loss of bladder control. Pt denies any recent injury Pt states that she has low back pain constantly with intermittent left leg numbness which started 4 weeks ago. Pt has sharp pain, Pt states that her back pain is 9/10 all the time. Pt has chronic GERD. pt failed zantac and omeprazole. Pt had benign EGD several years ago pt states that she has daily severe GERD without nexium Pt takes OTC nexium 40 mg daily Pt denies any abd pain Pt denies any nausea, vomiting Pt denies any blood in stool. Lumbago1 Pt has chronic l ow back pain for the past 3 years. Pt has 8/10 pain. Pt denies any sciatica or numbness. Pt has constant pain, MRI showed spondylosis GERD1 Pt has chronic G ERD Pt has been takign omeprzole on and off for several months. Pt states that her GED symptoms is well controlled with omerpzole back pain1 Pt has chronic L BP. Pt denies any loss of owel or bladder control. Pt has sharp 8/10 pain. Pt c/o sciatica down to right leg. Pt has not done PT yet. GERD GERD1 Pt has GERd symp toms daily. Pt states that taking omerpzole really helps. Pt does not take daily Pt denies any abd pain or any nauea cardiac murmur Pt denies any ch est pain or SOB Instructions Date Instruction Additional Infor chaparro Special diet education Related t o Body mass index (BMI) 27.0-27.9, adult Increase physical activity Relat ed to Disorder of thyroid, unspecified Weight management Related to Dis order of thyroid, unspecified Special diet education Related t o Body mass index (BMI) 28.0-28.9, adult Increase activity. Related to En cntr for general adult medical exam w/o abnormal findings Physical activity counseling Rel ated to Dietary surveillance counseling Decrease caloric intake Related to Dietary surveillance counseling Dietary counseling Related to Di etary surveillance counseling Decrease caloric intake Related to Dietary surveillance counseling Decrease caloric intake Related to Dietary surveillance counseling Dietary counseling Related to Di etary surveillance counseling Decrease caloric intake Related to Dietary surveillance counseling Dietary counseling Related to Di etary surveillance counseling Dietary counseling Related to Di etary surveillance counseling Decrease caloric intake Related to Dietary surveillance counseling Dietary counseling Related to Di etary surveillance counseling Decrease caloric intake Related to Dietary surveillance counseling Assessments Type Assessment Date No Information
--- OUTSIDE RECORDS SUMMARY | 2024-09-12 12:57 | XMS_ITS | Data Portability ---
Author Organization 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 Patient will come back in a year unless there are new symptoms. [email or web address] Not available 08/27/2024 11:27:02 Plan of Treatment Reminders Order Date Submit Date Provider Last Modified By Organization Details Last Modified Time Details Appointments None recorded. Lab hbcab (hepatitis B core Ab) igm, serum [address] [facility] (Lab), [address] [place], [address], 13:45:53 HBsAg (hepatitis B surface Ag), serum [address] [facility] (Lab), [address] [place], [address], 13:45:52 hepatitis C virus Ab, serum [address] [facility] (Lab), [address] [place], [address], 13:45:53 HIV 1+2 AB + HIV 1 p24 Ag, qualitative immunoassay , serum [address] [facility] (Lab), [address], [place], [address], 5 13:45:52 RPR (rapid plasma reagin), serum [address] [facility] (Lab), [address], [place], [address], 5 13:45:53 unlisted lab - women's health swab plus, AGUSTIN [address] [facility] (Lab), [address], [place], [address], 5 02:02:15 pap, IG + HR HPV - HPV regardless but if HPV is positive need subtyping 16,18/[address] [facility] (Lab), [address], [place], [address], 5 02:02:14 Referral None recorded. Procedures None recorded. Surgeries None recorded. Imaging MAMMO, screening, digital, bilateral 2024 [facility], [address], [place] [address], [place], [address], 04:02:10 Medication Orders nystatin-tr iamcinolone 100,000 unit/gram-0 .1 % topical ointment 2024 [facility], [address], [place], [place], [id number], 5 11:59:18 Diflucan 150 mg tablet 2023 [facility] #36584, [address], [place], [place], [id number], 5 11:28:16 Diflucan 150 mg tablet 2023 024 [email or web address] [facility] #75880, [address], [place], [place], [id number], 11:28:05 Patient TargetsNo targets recorded. Patient InstructionsNo instructions recorded. Reason for Referral None Reported. Results Created Date Observation Date Name Description Value Unit Range Abnormal Flag Note LastModifiedBy Organization Detail LastModifiedTime 09/27/19 24 09/27/2023 HCG(H UMAN CHORI ONIC GONAD OTROP IN),Q UAL SERUM , REFLE X QUANT ITATI VE bhcg, qualitative, blood Negati ve negati ve Not Available [facility] (Lab) [address], [place], [address], 09/28/2023 03:16:14 01/30/20 24 01/30/2024 VAGIN ITIS/ VAGIN OSIS, DNA PROBE killian sp. detection, direct probe Negati ve negati ve Not Available [facility] (Lab) [address], [place], [address], 01/31/2024 10:08:51 01/30/20 24 01/30/2024 VAGIN ITIS/ VAGIN OSIS, DNA PROBE gardnerella vag. detection, direct probe Negati ve negati ve Not Available [facility] (Lab) [address], [place], [address], 01/31/2024 10:08:51 01/30/20 24 01/30/2024 VAGIN ITIS/ VAGIN OSIS, DNA PROBE trichomonas vag. detection, direct probe Negati ve negati ve Not Available [facility] (Lab) [address] [place], [address], 01/31/2024 10:08:51 08/28/19 25 08/27/2024 HEPAT ITIS B SURFA CE ANTIG EN hepatitis B surface antigen Non-re active non-re active This assay was perfo rmed using [employer] ratio n reage nts and test kits. Value s obtai porter with other assay metho ds or kits canno t be used inter somers eably . Not Available [facility] (Lab) [address], [place], [address], 08/28/2024 13:45:52 08/28/19 25 08/27/2024 HIV 1/2 ANTIG EN/AN TIBOD Y, REFLE X CONFI RMATI ON HIV antigen/anti body Nonrea ctive nonrea ctive HIV-1 antig en and HIV-1 /HIV- 2 antib odies were not detec yancy. No labor atory evide nce of HIV infec tion. Not Available [facility] (Lab) [address], [place], [address], 08/28/2024 13:45:52 08/28/19 25 08/27/2024 HEPAT ITIS C ANTIB FLAKITO SCREE N, REFLE X TO CONFI RMATI ON hepatitis C antibody Non-re active non-re active Antib odies to HCV Not Detec yancy, does not exclu de the possi bilit y of expos ure to HCV. Not Available [facility] (Lab) [address], [place], [address], 08/28/2024 13:45:53 08/28/19 25 08/27/2024 RPR SCREE N, REFLE X TITER /CONF IRMAT ION RPR qualitative Nonrea ctive nonrea ctive Not Available [facility] (Lab) [address] [place], [address], 08/28/2024 13:45:53 08/28/19 25 08/27/2024 HEPAT ITIS B CORE, IGM hepatitis B core IgM antibody Non-re active non-re active IgM anti- HBc not detec yancy. Does not exclu de the possi bilit y of expos ure to or infec tion with HBV. Test Perfo rmed by: [facility] [address] [place] [address] Not Available [facility] (Lab) [address] [place], [address], 08/28/2024 13:45:53 08/28/19 25 08/27/2024 IMAGE GUIDE D PAP AND HPV REGAR DLESS image guided Pap, HPV regardless of Pap result SEE RESULT S BELOW CASE REPOR T: Cytol ogy Gynec ologi thais Repor t Case: [id number] Autho ulises cornell Provi sera: Wendie Stock, RAMÍREZ Colle cted: 08/27 1308 Order ing Locat ion: [place] [facility] Recei marleen: 08/28 0912 First Scree n: Rick Escobedo, CT Rescr een: Juan Pablo Denis ed, CT Speci men: Liana way Pap - Image d, Cervi x STATE MENT OF ADEQU ACY: Satis facto ry for evalu ation Trans forma tion zone compo nent prese nt ----- ----- ----- ----- ----- ----- ----- ----- ----- ----- ----- ----- ----- ----- ----- ----- ----- ---- FINAL DIAGN OSIS: Negat sosa for Intra epith elial Jenelle santiago or Juan Manuel boles ([facility]) . Elect willy shaikh d by Juan Pablo Denis ed, CT on 025 at 0055 CDT ----- ----- ----- ----- ----- ----- ----- ----- ----- ----- ----- ----- ----- ----- ----- ----- ----- ---- HPV RESUL TS: HPV mRNA E6/E7 : No HPV mRNA Detec yancy NOTE: This high risk HPV mRNA assay detec ts fourt een high- risk HPV types (16, 18, 31, 33, 35, 39, 45, 51, 52, 56, 58, 59, 66, 68) witho ut diffe renti ation . COMME NT: This speci men was revie wed by a Cytot echno logis t and/o r Patho logis t (as indic ated in this repor t) after evalu ation using the Thinp rep Imagi ng Syste m. CLINI THAIS INFOR MATIO N: Menst rual Statu s: LMP (if appli cable ): Clini thais Histo ry/Pr eviou s Pap: Type of Neopl lalo (if appli cable ): Signi fican t Clini thais Findi ngs: Other Histo ry: Hormo saray (if appli cable ): PAP EDUCA SONIDO L NOTE: The Pap Test is a scree rayna test with an inher ent false negat sosa rate. Liqui d-bas ed sampl ing may decre ase, but will not elimi janet, false negat sosa resul ts. A negat sosa resul t does not precl ude the prese nce and/o r devel opmen t of disea se, since the prese nce of abnor mal cells in the sampl e depen ds on the locat ion of the lesio n and sampl ing techn ique. Tyson nued regul ar scree rayna is the best metho d of cance r preve ntion . If repor yancy cytol ogic findi ng do not corre late with physi thais and/o r histo rical findi ngs, furth er inves tigat ion is recom lamar d, as clini mundo rutledge nted. Not Available [facility] (Lab) [address], [place], [address], 08/31/2024 02:02:14 08/28/19 25 08/27/2024 TRICH OMONA S VAGIN NICOLA (RRNA ) trichomonas vaginalis ribosomal RNA (rrna) Negati ve negati ve Not Available [facility] (Lab) [address], [place], [address], 08/31/2024 02:02:15 08/28/19 25 08/27/2024 CT/GC (ARNEL) , THINP REP VIAL chlamydia trachomatis, PCR Negati ve negati ve Not Available [facility] (Lab) [address], [place], [address], 08/31/2024 02:02:15 08/28/1908/27/2024 CT/GC (ARNEL) , THINP REP VIAL neisseria gonorrhoeae, PCR Negati ve negati ve Not Available [facility] (Lab) [address], [place], [address], 08/31/2024 02:02:15 08/28/1908/27/2024 WOMEN 'S HEALT H SWAB PLUS, AGUSTIN bacterial vaginosis (bv), tma Negati ve negati ve Not Available [facility] (Lab) [address], [place], [address], 08/31/2024 02:02:15 08/28/1908/27/2024 WOMEN 'S HEALT H SWAB PLUS, AGUSTIN killian species, tma Negati ve negati ve Not Available [facility] (Lab) [address], [place], [address], 08/31/2024 02:02:15 08/28/1908/27/2024 WOMEN 'S HEALT H SWAB PLUS, AGUSTIN killian glabrata, tma Negati ve negati ve Not Available [facility] (Lab) [address], [place], [address], 08/31/2024 02:02:15 08/28/1908/27/2024 WOMEN 'S HEALT H SWAB PLUS, AGUSTIN trichomonas vaginalis, tma Negati ve negati ve Not Available [facility] (Lab) [address] [place], [address], 08/31/2024 02:02:15 08/28/1908/27/2024 WOMEN 'S HEALT H SWAB PLUS, AGUSTIN chlamydia trachomatis, PCR Negati ve negati ve Not Available [facility] (Lab) [address] [place], [address], 08/31/2024 02:02:15 08/28/1908/27/2024 WOMEN 'S HEALT H SWAB PLUS, AGUSTIN neisseria gonorrhoeae, PCR Negati ve negati ve Bacte rial vagin osis detec ts the follo wing bacte kristofer assoc iated with bacte rial vagin osis (BV): Lacto bacil angelia (L. gasse ri, L. crisp atus and L. jense shelly), Gardn erell a vagin nicola, and Atopo bium vagin ae. A singl e quali tativ e resul t is repor yancy base on instr ument softw are to deter mine BV posit sosa or negat sosa statu s. The Kathryn da speci es group tests for C. albic ans, C. tropi calis , C. parap josselin is, C. dubli niens is. Testi ng is perfo rmed using the Trans cript ion Media yancy Ampli ficat ion metho d. Tests for Kathryn da glabr woo, Trich omona s vagin nicola, Chlam ydia trach omati s, and Neiss eria gonor rhoea e are also inclu ded in this panel . Not Available [facility] (Lab) [address], [place], [address], 08/31/2024 02:02:15 Result Notes None recorded. Problems Name Problem SNOMED Code Status Onset Date Resolution Date Notes Provider Name and Address Organization Details Recorded Time Leukorrh ea 369158036 Completed 201407/03/2020 Vaginal discharg e;Record ed Elsewher e: No Locat ion: Ruth woodward [facility] S ource: EHR Crate Builder fredo: N Tito ce ID: 0001 Chano lable Time: 04:45:00 PM Malathi Arthur [facility] 18:43:[address] Concept Completed 201707/03/2020 Encntr for er registrar exam (general ) (routine ) w/o abn findings ;Recorde d Elsewher e: No Locat ion: Ruth woodward [facility] S ource: EHR Crate Builder fredo: N Tito ce ID: 0001 Chano lable Time: 11:00:00 AM Malathi Arthur jodee, [facility] 1 18:44:05 Vaginola bial hernia Completed 201707/03/2020 Other specifie d noninfla mmatory disorder s of vagina;R ecorded Elsewher e: No [facility] E[facility] Crate Builder fredo: Sobeida Tito ce ID: 0001 Chano lable Time: 11:00:00 AM Malathi [facility], [facility] 18:44:11 Pregnanc y test negative [id number] Completed 201707/03/2020 Encounte r for pregnanc y test, result negative ;Recorde d Elsewher e: No Locat ion: [facility] S ource: EHR Crate Builder fredo: Sobeida Francis ce ID: 0001 Chano lable Time: 04:45:00 PM Malathi [facility], [facility] [address] 18:44:[address] Concept Completed 201507/03/2020 Encntr for general adult medical exam w/o abnormal findings ;Recorde d Elsewher e: No Locat ion: [facility] S ource: EHR Crate Builder fredo: Sobeida Tito ce ID: 0001 Chano lable Time: 08:30:00 AM Malathi ellsworth [facility] 1 18:44:03 Atypical squamous cells of undeterm ined signific ance on cervical Papanico laou smear [id number] Completed 201307/03/2020 Papanico laou smear of cervix with atypical squamous cells of undeterm ined signific ance (ASC-US) ;Recorde d Elsewher e: No Locat ion: [facility] S ource: EHR Crate Builder fredo: Sobeida Francis ce ID: 0001 Chano lable Time: 10:19:10 AM Malathi ellsworth, [facility] 18:44:15 Overweig ht [id number] Completed 201307/03/2020 Overweig ht;Recor ded Elsewher e: No Locat ion: [facility] S ource: EHR Crate Builder fredo: N Practi ce ID: 0001 Chano lable Time: 03:45:00 PM Malathi Fantz jodee, [facility] 18:43:59 Body mass index 30+ - obesity 888648323 Completed 201507/03/2020 Body mass index (BMI) 30.0-30. 9, adult;Re corded Elsewher e: No Locat ion: [facility] S ource: EHR Crate Builder fredo: N Practi ce ID: 0001 Chano lable Time: 08:30:00 AM Malathi Arthur jodee [facility] 18:43:55 Speciali zed medical examinat ion Completed 201307/03/2020 Gynecolo gical Examinat ion;Manohar rded Elsewher e: No Locat ion: [facility] S ource: EHR Crate Builder fredo: N Practi ce ID: 0001 Chano lable Time: 03:45:00 PM Malathi Fantz joede, [facility] 18:44:07 Vaginiti s and vulvovag initis Completed 201307/03/2020 Vaginiti s and vulvovag initis, unspecif ied;Prac leslee ID: 0001 Malathi [facility], [facility] 18:44:09 History of abnormal cervical Papanico laou smear 100812808 Active 2017 ASCUS / hpv HIGH RISK Malathi Arthur [facility], [facility] 18:44:59 Family history of gene mutation [id number] 60353 Active 2022 sister- uncertai n cancer gene- will get details Arlene Benjamin MD [address], [place], [address], [facility] 19:22:31 Problem Notes None recorded. Procedures Surgical History Date Name Laterality Status Provider Name and Address Organization Details Recorded Time 04/28/20 24 esophageal hiatus hernia repair completed Geeta Atkins [facility] 08/27/2024 11:32:18 09/29/19 24 IUD Insertion completed Abrahan Cruz MD [address], [place], [address], [facility] 09/29/2023 11:12:41 08/29/19 24 Date of Last Mammogram completed Joyce Huerta [facility] 09/29/2023 10:49:07 07/27/19 24 Date of Last Pap Smear completed Chyna Madrid [facility] 07/27/2023 12:19:13 07/14/19 22 Control Implant Removal completed Abrahan Cruz MD [address], [place], [address], [facility] 07/14/2021 18:53:10 09/27/19 21 completed Joanna Mahajan [facility] 12/02/2020 17:56:42 07/19/19 18 Colposcopy completed Malathi Arthur [facility] 07/03/2020 18:39:51 05/29/19 14 termination of completed Malathi Arthur [facility] 09/18/2021 11:55:25 05/29/19 11 procedure on wrist completed Malathi Arthur [facility] 07/03/2020 18:41:57 Imaging Results None recorded. Procedure Notes None recorded. Medical Equipment None Reported. Allergies No known drug allergies Medications Name Sig Start Date Stop Date Status Note LastModified by Organization Details LastModified Time multivita min tablet 12/19 completed Prescrib ed [facility] e: Yes Loca [facility] By: dennis see DateTime : 02/21/20 14 03:45:00 PM Not Available Not Available Not Available slippery elm bark 400 mg capsule Take by oral route. active Not Available Not Available No t Available cyclobenz aprine 10 mg tablet TAKE 1 TABLET BY MOUTH THREE TIMES DAILY 04/12 completed Not Available Not Available Not Available amoxicill in 500 mg capsule TAKE 1 CAPSULE BY MOUTH THREE TIMES A DAY FOR 7 DAYS 04/12 completed Not Available Not Available Not Available ibuprofen 800 mg tablet TAKE 1 TABLET BY MOUTH EVERY 8 HOURS NEEDED FOR PAIN 04/19 completed Not Available Not Available Not Available alprazola m 1 mg tablet 09/20 completed Not Available Not Available Not Available nystatin 100,000 unit/gram topical ointment APPLY TOPICALL Y TO THE AFFECTED AREA TWICE DAILY 04/12 completed Not Available Not Available Not Available fluconazo le 150 mg tablet TAKE 1 TABLET BY MOUTH EVERY 72 HOURS 08/27 completed Not Available Not Available Not Available hydrocodo ne 5 mg-acetam inophen 325 mg tablet TAKE 1 TABLET BY MOUTH EVERY 6 HOURS WITH FOOD NEEDED FOR PAIN 04/12 completed Not Available Not Available Not Available fluconazo le 200 mg tablet TAKE 1 TABLET BY MOUTH EVERY OTHER DAY FOR 3 DOSES 07/19 completed Not Available Not Available Not Available meloxicam 15 mg tablet TAKE 1 TABLET BY MOUTH DAILY completed Not Available Not Available Not Available metronida zole 0.75 % (37.5 mg/5 gram) vaginal gel INSERT 1 APPLICAT OR VAGINALL Y AT BEDTIME FOR 5 DAYS 06/21 completed Not Available Not Available Not Available famotidin e 40 mg tablet 08/27 completed Not Available Not Available Not Available metronida zole 500 mg tablet TAKE 1 TABLET BY MOUTH EVERY 12 HOURS FOR 7 DAYS 01/26 completed Not Available Not Available Not Available ciproflox acin 500 mg tablet TAKE 1 TABLET BY MOUTH EVERY 12 HOURS 07/14 completed Not Available Not Available Not Available sulfameth oxazole 800 mg-trimet hoprim 160 mg tablet TAKE 1 TABLET BY MOUTH TWICE DAILY FOR 7 DAYS 07/19 completed Not Available Not Available Not Available peg-elect rolyte solution 420 gram oral solution MIX AND DRINK DIRECTED 12/02 completed Not Available Not Available Not Available tramadol 50 mg tablet TAKE 1 TABLET BY MOUTH EVERY 6 HOURS NEEDED 08/27 completed Not Available Not Available Not Available pantopraz ole 20 mg tablet,de layed release TAKE 1 TABLET BY MOUTH DAILY 04/12 completed Not Available Not Available Not Available Nexium 20 mg capsule,d elayed release take 1 capsule by oral route every day at least 1 hour before a meal swallowi ng whole. Do not crush or chew granules . 07/04 completed Prescrib ed [facility] e: Yes Loca tion: [facility] odify By: dennis see DateTime : 02/21/20 14 03:45:00 PM Not Available Not Available Not Available nystatin- triamcino lone 100,000 unit/gram -0.1 % topical ointment APPLY TO THE AFFECTED AREA(S) BY TOPICAL ROUTE 2 TIMES PER DAY x 7days 2024 active Not Available Not Available Not Avai lable meloxicam 7.5 mg tablet 08/27 completed Not Available Not Available Not Available oxycodone -acetamin ophen 5 mg-325 mg tablet TAKE 1 TABLET BY MOUTH EVERY 4 HOURS NEEDED. 08/27 completed Not Available Not Available Not Available alprazola m 0.25 mg tablet 08/27 completed Not Available Not Available Not Available methocarb benton 750 mg tablet TAKE 1 TABLET BY MOUTH THREE TIMES DAILY NEEDED FOR MUSCLE SPASM 08/27 completed Not Available Not Available Not Available triamcino lone acetonide 0.1 % topical ointment APPLY THIN LAYER TOPICALL Y TO THE AFFECTED AREA TWICE DAILY 04/12 completed Not Available Not Available Not Available promethaz ine 25 mg tablet TAKE 1/2 TABLETS BY MOUTH EVERY 6 HOURS NEEDED FOR NAUSEA 04/12 completed Not Available Not Available Not Available gabapenti n 300 mg capsule TAKE 1 CAPSULE BY MOUTH TWICE DAILY 08/27 completed Not Available Not Available Not Available omeprazol e 20 mg capsule,d elayed release TAKE 1 CAPSULE BY MOUTH EVERY DAY BEFORE A MEAL completed Not Available Not Available Not Available ergocalci ferol (vitamin D2) 1,250 mcg (50,000 unit) capsule TAKE 1 CAPSULE BY MOUTH EVERY WEEK 12/19 completed Not Available Not Available Not Available ibuprofen 600 mg tablet TAKE 1 TABLET BY MOUTH THREE TIMES DAILY NEEDED FOR PAIN 04/12 completed Not Available Not Available Not Available polyethyl chidi glycol 3350 17 gram/dose oral powder TAKE DIRECTED BY OFFICE 04/12 completed Not Available Not Available Not Available methylpre dnisolone 4 mg tablets in a dose pack TAKE BY MOUTH DIRECTED 09/18 completed Not Available Not Available Not Available ondansetr on 4 mg disintegr ating tablet DISSOLVE ONE TABLET BY MOUTH THREE TIMES DAILY FOR NAUSEA 08/27 completed Not Available Not Available Not Available Calcium-5 00 500 mg (as calcium carbonate 1,250 mg) tablet 04/19 completed Prescrib ed Elsewher e: Yes Loca tion: [facility] odify By: dennis see DateTime : 02/21/20 14 03:45:00 PM Not Available Not Available Not Available azithromy benjy 500 mg tablet TAKE 2 TABLETS BY MOUTH ONCE 06/21 completed Not Available Not Available Not Available TriNessa (28) 0.18 mg(7)/0.2 15 mg(7)/0.2 5 mg(7)-35 mcg tablet TAKE 1 TABLET BY ORAL ROUTE EVERY DAY 12/22 completed Prescrib ed Elsewher e: No Locat ion: [facility] odify By: samantha Burkett ter DateTime : 06/22/19 16 08:30:00 AM Not Available Not Available Not Available nitrofura ntoin monohydra te/macroc rystals 100 mg capsule TAKE 1 CAPSULE BY MOUTH EVERY 12 HOURS FOR 7 DAYS completed Not Available Not Available Not Available duloxetin e 30 mg capsule,d elayed release 04/12 completed Not Available Not Available Not Available chlorhexi dine gluconate 0.12 % mouthwash RINSE MOUTH 2 TIMES DAILY 09/20 completed Not Available Not Available Not Available Vitamin C active Not Available Not Merry ilable Not Available calcium 07/04 completed Not Available Not Available Not Available multivita min active Not Available Not Available Not Available Nexium 08/27 completed Not Available Not Available Not Available Probiotic active Not Available Not Merry ilable Not Available Nexplanon 68 mg subdermal implant as directed 07/14 completed Prescrib ed Glad[facility] e: No Locat ion: [facility] M odify By: [email or web address] z Encoun ter DateTime : 12/23/19 19 09:45:00 AM Not Available Not Available Not Available Chlorophy ll (with alfalfa) active Not Available Not Available Not Available Blisovi Fe 06/17 (28) 1 mg-20 mcg (21)/75 mg (7) tablet TAKE 1 TABLET BY MOUTH EVERY DAY 12/19 completed Not Available Not Available Not Available ID NOW COVID-19 Test Kit TEST DIRECTED TODAY 04/12 completed Not Available Not Available Not Available Vitals Date Recorded Body height Body mass index (BMI) Body weight Systolic blood pressure Diastolic blood pressure Provider Name and Address Organization Details Last Updated DateTime 09/21/2023 162.56 cm 34.5 kg/m2 60350.07 g 127 mm[Hg] 84 mm[Hg] Chyna Madrid [facility] 4 09:38:30 Date Recorded Body height Body mass index (BMI) Body weight Systolic blood pressure Diastolic blood pressure Provider Name and Address Organization Details Last Updated DateTime 09/29/2023 162.56 cm 34.2 kg/m2 38130.88 g 120 mm[Hg] 81 mm[Hg] [facility] 4 10:49:00 Date Recorded Body height Body mass index (BMI) Body weight Systolic blood pressure Diastolic blood pressure Provider Name and Address Organization Details Last Updated DateTime 11/08/2023 162.56 cm 33.6 kg/m2 30266.1 g 129 mm[Hg] 82 mm[Hg] [facility] 4 14:29:52 Date Recorded Body height Body mass index (BMI) Body weight Systolic blood pressure Diastolic blood pressure Provider Name and Address Organization Details Last Updated DateTime 01/27/2024 162.56 cm 33.3 kg/m2 44165.92 g 125 mm[Hg] 79 mm[Hg] Tiffanie Negron [facility] 4 10:56:48 Date Recorded Body height Body mass index (BMI) Body weight Systolic blood pressure Diastolic blood pressure Provider Name and Address Organization Details Last Updated DateTime 08/27/2024 162.56 cm 33.7 kg/m2 82134.54 g 116 mm[Hg] 78 mm[Hg] Geeta Atkins [facility] 5 11:27:39 Social History Question Answer Notes LastModified by Organizat ion Details LastModified Time Tobacco Smoking Status Never Smoker Bradly Chavez [email or web address], [facility] 06/21/2022 16:12:04 Do You Have An Advance Directive? No Information not available 12/02/2020 What Is Your Level Of Alcohol Consumption? Occasional Information not available 07/27/2023 If You Are , What Was Your Level Of Alcohol Consumption Prior To ? Occasional [email or web address] Information not available 06/21/2022 How Many Years Have You Consumed Alcohol? 20 Information not available 04/19/2021 Are You Blind Or Do You Have Difficulty Seeing? No Information not available 12/02/2020 What Is Your Level Of Caffeine Consumption? Occasional [email or web address] Information not available 07/04/2020 How Much Tobacco Do You Chew? None Information not available 04/19/2021 In The 14 Days Before Symptom Onset, Have You Had Close Contact With A Laboratory-confir med COVID-19 While That Case Was Ill? No Information not available 12/02/2020 In The 14 Days Before Symptom Onset, Have You Had Close Contact With A Person Who Is Under Investigation For COVID-19 While That Person Was Ill? No Information not available 12/02/2020 Have You Been To An Area Known To Be High Risk For COVID-19? No Information not available 12/02/2020 Are You Deaf Or Do You Have Serious Difficulty Hearing? No Information not available 12/02/2020 What Type Of Diet Are You Following? REGULAR Information not available 12/02/2020 What Is The Highest Grade Or Level Of School You Have Completed Or The Highest Degree You Have Received? 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 No Information not available 12/02/2020 Have You Ever Been Counseled For Unhealthy Alcohol Use? No [email or web address] Information not available 06/21/2022 Do You Use Protection During Sex? Always Information not available 07/27/2023 Do You Use Your Seat Belt Or Car Seat Routinely? Yes Information not available 12/02/2020 Do You Have Smoke And Carbon Monoxide Detectors In Your Home? Yes Information not available 12/02/2020 How Much Tobacco Do You Smoke? No Information not available 12/02/2020 Do You Feel Stressed (tense, Restless, Nervous, Or Anxious, Or Unable To Sleep At Night)? [id number] Information not available 12/02/2020 Do You Use Any Illicit Or Recreational Drugs? No Information not available 07/27/2023 Do You Use Sunscreen Routinely? No Information not available 12/02/2020 Has Tobacco Cessation Counseling Been Provided? No [email or web address] Information not available 06/21/2022 Have You Used IV Drugs? No Information not available 12/02/2020 Do You Or Have You Ever Used Any Other Forms Of Tobacco Or Nicotine? No [email or web address] Information not available 06/21/2022 Sex: Unknown Functional Status Question Answer Note LastModified by Organizat ion Details LastModified Time Do you have difficulty walking or climbing stairs? No [email or web address] Information not available 06/21/2022 Are you able to walk? [email or web address] Information not available 12/02/2020 Are you able to care for yourself? Yes Information not available 06/21/2022 Do you have difficulty dressing or bathing? No Information not available 06/21/2022 What is your exercise level? None Information not available 12/02/2020 Mental Status None recorded. Family History Relationship Description Onset Age of this Age Resolved Age Notes LastModified by Organization Details LastModified Time Mother Hypertensive disorder [email or web address] Not available 2020 15:30:04 Mother Malignant tumor of breast [email or web address] Not available 2024 11:31:46 Sister Hypertensive disorder [email or web address] Not available 2020 15:30:04 Medical History Condition Response Allergies (Food, seasonal, environmental ) N Other N Breast Cancer N Drug/Latex Allergies/Reactions N Blood Transfusion N Dermatologic Disorders N Lung Disease N Defects or Inherited Disease N Breast Problem N Gestational Diabetes N Hematologic disorders N Anesthesia Complications N History of STI Y Deep Vein Thrombosis N Polycystic ovary syndrome N Anxiety Disorder N Autoimmune disease N Arthritis N Infertility N Polyps N Acid Reflux (GERD) Y History of abnormal pap Y Cancer N Stroke N Varicosities N Neurologic/Epilepsy N Endometriosis N High Cholesterol N Headaches N Fibromyalgia N Kidney Disease N Heart Problems N Kidney or Bladder Problems N Thyroid Problems N GI Problems N Eating Disorder N Anemia N Art (IVF or FET) N Psychiatric Illness N Ovarian Cancer N Diabetes N Pulmonary (TB, Asthma) N Hepatitis/Liver Disease N Eczema N Urinary Tract Infection N Abuse/Domestic Violence N Asthma N Trauma/Violence N Depression/ depression N Heart Disease N Pre-Eclampsia N Hypertension N Osteoporosis N Thrombophilias N Gynecological History Statement/Question Response Date of Last Mammogram 08/29/2023 Flow Heavy Date of LMP 08/05/2024 N Was last menstrual period normal Y STIs/STDs Y Date of control 05/29/2018 IUD Desired Control Method IUD Abnormal Pap Y On BCP's at Conception? N Colposcopy 07/19/2017 HPV Vaccine Y Duration of Flow (days) 4 Current Control Method None Age at First Child 15 Are cycles usually normal N Frequency of Cycle (Q days) 30 Sexually Active? Y Menses Monthly Y Date of DEXA bone scan Age of first menstrual cycle 11 Date of Last Pap Smear 07/27/2023 Sexual Problems? N LMP Definite 09/26/2020 N 06/07/2017 Obstetrics History GPAL:G 3 P 2 0 1 2 Type Value Full Term 2 Induced 1 Living 2 Total 3 Past Encounters Encounter ID Performer Location Encounter Start Date Encounter Closed Date Diagnosis/Indication Diagnosis SNOMED-CT Code Diagnosis ICD10 Code Diagnosis Note [id number] Abrahan Cruz MD [facility] [address] [address] 02/11/2020 15:50:48 02/11/2020 16:58:56 Gynecologic examination 47431179 Z01.419 This patient is here for her annual exam. A thorough history was taken. A physical exam was performed. Age appropriat e routine health screening was ordered, performed, and discussed. Recommende d testing was ordered. She was asked to follow up in one year. She will be informed of any test results. Mammogram - na Colonoscop y - [na Bone Density - na Cholestero l - tiday Pap - today std testing , check discharge Sexually t ransmitted infectious disease 1676465 A64 [id number] MICHAEL [facility] [address],[place] [address] 07/04/2020 12:31:13 07/06/2020 11:43:44 Vaginitis 02339758 N76.0 Suspect yeast today on exam VCG's reviewed Consider BA if this becomes recurrent issue. [facility]. Still on medication s. Finish BV & yeast medication s RTO if any issues. Time spent in visit is a total of 15 mins with at least 50% of visit consisting of counseling and review of plan of care. Additional precaution chen measures were taken to minimize potential exposure to the Covid-19 virus during this patient s visit, including available hand media manager upon arrive, temperatur e check and being asked a series of screening questions. All staff wore face coverings during this encounter, as well as provided additional cleaning and sanitizing of all surfaces, including countertop s, pens, chairs, door handles, light switches, etc, prior to and following the patient s visit. [id number] Abrahan Cruz MD [facility] [address] [address] 07/14/2021 18:10:34 07/15/2021 15:29:50 Contraception care management [id number] Z30.9 Nexplanon removal performed without complicati ons. The patient tolerated well. She is considerin g tubal ligation. She will contact us if she wants to proceed with tubal ligation /Salpingec leni. [id number] Abrahan Cruz MD [facility] [address],[facility] [place] [address] 12/02/2020 17:44:51 12/03/2020 10:56:08 Bacterial vaginosis 380436819 N76.0 this patient is a 35-year-ol d female presents for vaginal discharge. Her vaginal discharge does not have a foul odor. It does not cause any itching. She has no irritation of the vulva. Patient reports a sweet smell to her discharge. Patient is concerned about 6 transmitte d disease. Patient would like to be treated for BV and yeast. She was examined. Her exam was normal. We agreed to treatment. Venereal d isease screening 494913867 Z11.3 Sexually t ransmitted infectious disease 8513711 A64 [id number] Abrahan Cruz MD [facility] [address],[place] [address] 04/19/2021 15:23:41 04/19/2021 16:10:44 Urinary symptoms 998222636 R39.9 Gynecologi c examination 12108274 Z01.419 This patient is here for her annual exam. A thorough history was taken. A physical exam was performed. Age appropriat e routine health screening was ordered, performed, and discussed. Recommende d testing was ordered. She was asked to follow up in one year. She will be informed of any test results. Mammogram - ordered Colonoscop y - [na Bone Density - na Cholestero l - tiday Pap - today std testing , check discharge Sexually t ransmitted infectious disease 5429505 A64 [id number] [facility] [address],[place] [address] 09/18/2021 11:26:48 09/18/2021 12:23:35 Vaginitis 61379128 N76.0 Suspect BV but will also send in treatment to prevent yeast.Will return if sx's do not improve. Counseled on medication R/B's, Most common side effects, & use. All questions were answered to patient satisfacti on. Rx sent Time spent in visit is a total of 15 mins with at least 50% of visit consisting of counseling and review of plan of care. [id number] [facility] [address],[place] [address] 04/12/2022 12:03:41 04/12/2022 12:43:46 Vaginitis 01794367 N76.0 Suspect BV/YeastTr eatment sentSTD sent per request Counseled on medication R/B's, Most common side effects, & use. All questions were answered to patient satisfacti on. Time spent in visit is a total of 15 mins with at least 50% of visit consisting of counseling and review of plan of care. [id number] Abrahan Cruz MD [facility] [address],[place] [address] 06/13/2022 11:37:59 06/13/2022 13:00:25 Female sterilization 10217928 Z30.2 this patient is a 36-year-ol d female presents for discussion tubal ligation or sterilizat ion, salpingect eugene. I describe salpingect eugene to her in detail. I discussed risk with her. We talked about alternativ es to sterilizat ion. Talked about Mirena IUD and Nexplanon. Ultimately she decided to proceed with the surgery. We will proceed with laparoscop ic salpingect eugene bilateral. We spent over 40 minutes face-to-fa ce. More than 50% was counseling . We made a decision to perform surgery. [id number] Arlene Benjamin MD [facility] [address],[place] [address] 06/21/2022 16:11:55 06/22/2022 16:26:44 Gynecologic examination 65845380 Z01.419 Z11.51 Family his tory of gene mutation [id number] 99873 Z84.81 History of abnormal cervical Papanicolaou smear 444071222 Z87.42 Initial pr escription of oral contraception 467147025 Z30.011 [id number] Arlene Benjamin MD [facility] [address],[place] [address] 12/19/2022 17:45:17 12/20/2022 11:03:46 Venereal disease screening 983100811 Z11.3 Candidiasis of vagina 72 239066 B37.31 [id number] Wendie Stock RAMÍREZ [facility] [address],[place] [address] 07/19/2023 15:53:21 07/19/2023 16:35:13 Urinary symptoms 130616380 R39.9 cx sentrx sent for UTI - r/b/a reviewedgc /ct/trich testing sentHIV/He p B&C/Syphil is testing ordered per pt requestsaf e sexual practices discussedR TC for WWE or sooner if needed Time spent in visit is a total of 20 mins with at least 50% of visit consisting of counseling and review of plan of care. Venereal d isease screening 631607558 Z11.3 Sexually t ransmitted infectious disease 1100735 A64 [id number] Wendie Stock RAMÍREZ [facility] [address],[place] [address] 07/27/2023 12:11:29 07/27/2023 13:51:24 Gynecologic examination 69487941 Z01.419 Z11.51 WWEpap updateddec lined STI screenmamm ogram order givenrouti ne labs/PCP Take Calcium with Vitamin D daily if not receiving in daily diet.It is strongly advised to have an annual flu shot and up can obtain at most pharmacies . If you have not had a TDap shot in the last 10 years you should obtain one as well. Discussed with patient & provided with informatio n regarding Gardisil vaccine to prevent the 4 strains for HPV that cause cervical cancer if under age 26.Encoura ge safe sexual practices, to use condoms and limit partners if not already in a monogamous relationsh ip.Do monthly self breast exams. Have mammogram yearly or every other year depending on family history. BRCA testing is now available for patients with strong genetic history of female cancer. If interested contact the office. Engage in daily exercise of low impact aerobic exercise 45-60 minutes 4-5 times weekly. Avoid tobacco and illicit drugs. This lifestyle behavior pattern will lead to less health conditions and longer life span. If BMI greater than 25 dietary consult advised.oJss sr received above instructio ns, and questions have been answered. If you have any questions please call or respond to this email. Patient was made aware of the patient portal and may obtain a paper copy of today's plan if desired. Vaginitis 93055415 N76.0 rx sent for yeastr/b/a reviewed Screening for malignant neoplasm of breast 488757343 Z12.39 Family his tory of gene mutation [id number] 05531 Z84.81 Genetic testing discussed - handout given [id number] MICHAEL Marcos [facility] [address],[place] [address] 09/21/2023 09:33:43 09/25/2023 16:41:12 Left without being seen 0151041725 9102 Z53.21 [id number] Abrahan Cruz MD [facility] [address],[place] [address] 09/29/2023 10:31:34 09/29/2023 11:17:21 Vaginitis 04606427 N76.0 Contracept ion care management 374733303 Z30.9 IUD was inserted without complicati ons. She tolerated it well. [id number] Abrahan Cruz MD [facility] [address],[place] [address] 11/08/2023 14:24:07 11/08/2023 16:46:53 Contraception care management 086668626 Z30.9 This female presents for IUD check. She had a ParaGard IUD inserted [facility] 1 month ago. She has no complaints . She denies any excessive bleeding or pain. She has had some cramping and some spotting. Otherwise, she feels that is going well and wants to continue her IUD. [id number] Abrahan Cruz MD [facility] [address],[place] [address] 01/27/2024 10:48:49 01/27/2024 11:51:26 Vaginitis 70291246 N76.0 This patient is a 38-year-ol d female with vulvar irritation white vaginal discharge. She denies any odor. We took swabs from the vagina. The vulva appears irritated. There is white discharge present. We agreed to treat for yeast. She was prescribed medication . Risks, benefits, and alternativ es of the medication were described. Precaution s and instructio ns were given. [id number] MICHAEL Marcos [facility] [address],[place] [address] 08/27/2024 11:10:19 08/27/2024 12:01:38 Gynecologic examination 43626577 Z01.419 Z11.51 WWEBC - Paraguard IUDPap - done todaySTI screen - gc/ct/tric h testing sent per requestHIV /Hep B&C/Syphil is testing ordered per requestRou miriam labs - UTD/PCPRTC in 1 yr or sooner if needed It is strongly advised to have an annual flu shot and up can obtain at most pharmacies . If you have not had a TDap shot in the last 10 years you should obtain one as well. Discussed with patient & provided with informatio n regarding the HPV vaccine if applicable . Encourage safe sexual practices, to use condoms and limit partners if not already in a monogamous relationsh ip. Do monthly self breast exams. BRCA testing is now available for patients with strong genetic history of female cancer. If interested contact the office. Engage in regular exercise. Avoid tobacco and illicit drugs. This lifestyle behavior pattern will lead to less health conditions and longer life span. If BMI greater than 25 dietary consult advised. Questions answered. Screening for malignant neoplasm of breast 415993110 Z12.39 Sexually t ransmitted infectious disease 0533718 A64 Vulval irritation 268744 003 N90.89 vaginitis panel sentvulvar care guidelines discussed Contracept ion care management 462880424 Z30.9 discussed alternativ e BC methods d/t heavier periods since paraguard insertions he is going to consider her options Time spent in visit is a total of 30 mins with at least 50% of visit consisting of counseling and review of plan of care. Health Concerns Section Related Observation LastModified by Organization Detai ls LastModified Time None Recorded Concern Status LastModified by Organization Details LastModified Time None Recorded Advance Directives Directive N: Payers Encounter Date Sequence Insurance Name Policy Number Policy Mayes Covered Member ID Mayes Member ID Guarantor Name 09/21/2023 1 [place] [id number] Barb Marino [id number] Barb Vasser 09/29/2023 1 [place] [id number] Barb Marino [id number] Barb Vasser 11/08/2023 1 [place] [id number] Barb Marino [id number] Barb Vasser 01/27/2024 1 [facility] [place] [id number] Barb Vasser [id number] Barb Vasser 08/27/2024 1 [employer] [facility] - [place] (O) [id number] Barb Vasser [id number] Barb Vasser Notes Date Note Type Note Provider Name and Address Organization Details Recorded Time 09/21/2023 text/html Patient presents for IUD insertion. MICHAEL Marcos [address], [place], [address], [facility] 09/25/2023 16:41:10 09/29/2023 text/html Patient presents for IUD insertion. the procedure was explained to the patient in detail. She understands the procedure. She understands risks, benefits, and alternatives. She has completed the informed consent process and is ready to proceed. Abrahan Cruz MD [address], [place], [address], [facility] 09/29/2023 11:14:26 11/08/2023 text/html This female pres ents for IUD check. She had a ParaGard IUD inserted approximately 1 month ago. She has no complaints. She denies any excessive bleeding or pain. She has had some cramping and some spotting. Otherwise, she feels that is going well and wants to continue her IUD. Abrahan Cruz MD [address], [place], [address], [facility] 11/08/2023 16:39:49 01/27/2024 text/html This patient is a 38-year-old female with vulvar irritation white vaginal discharge. She denies any odor. We took swabs from the vagina. The vulva appears irritated. There is white discharge present. We agreed to treat for yeast. She was prescribed medication. Risks, benefits, and alternatives of the medication were described. Precautions and instructions were given. Abrahan Cruz MD [address], [place], [address], [facility] 01/27/2024 11:49:32 08/27/2024 text/html Annual GYNReport ed bypatient.Menstrual cycle:Normal menses Urinary symptoms:No hematuria; No incontinence Vulva:No genital lesion Vagina:Normal vaginal discharge;Vaginal itching Breast:No breast pain; No breast lump; No nipple discharge Current Contraception:Intrau terine device (iud) Sexual complaints:No sexual complaints; No pain during intercourse; Normal libido Menopausal Symptoms:No menopausal symptoms; Normal vaginal lubrication Psychological symptoms:No depression; No anxiety; No PMDD Preventive measures:Encourage self breast examination; Encourage regular exercise; Encourage no tobacco use; Encourage regular mammograms starting age 39Notes:38yo wweBC - paraguard IUD, inserted 4periods have been heavier since paraguard insertionlast pap 06/2023 : nilm, HPV (-) vaginal itching/frequent yeast infectionstook fluconazole last week, improved symptoms but still having vulvar irritation MICHAEL Marcos [address], [place], [address], [facility] 08/27/2024 13:09:58 OBGyn Episode Ob Episode Information Episode Created Date Number of Fetuses Patient Bloodtype Patient rh Status Prepregnancy Weight lbs Domestic Partner Domestic Partner Phone Father Name Precision Assembly Inspector Status 02/11/20 20 1 CLOSED Fetus Data First Name Last Name Admitted to NICU Weight (g) Sex Living Outcome Pediatric Complications Fetus ID Race Codes Race Delivery Type , Induced 4552 Stone Calculation Initial Stone Date Initial Exam Date Initial Exam Provider Initial Ultrasound Date Last Menstrual Period Date Ultra Sound Weeks Gestation 0 Eighteen To Twenty Week Stone Update Ultra Sound Date Fundal Height At Umbil Quickening Date Ultra Sound Latest Weeks Gestation Final Stone Confirmed By Final Stone Confirmed Date Final Stone Date Ultra Sound Latest Days Gestation 0 0 Menstrual History Last Menstrual Date Menses Monthly On Bcp Conception Prior Menses Frequency Hcg Plus Date Menarche Onset Age Delivery Information Delivery Date Delivery Type Labor Anesthesia Weeks Gestation Incision Type Labor Labor Length Hrs Delivered By Post Complications Tubal Sterilization Discharge Date Comments 4 Discharge Information Feeding Method Contraceptive Method Maternal HG B and HCT Levels Ob Episode Information Episode Created Date Number of Fetuses Patient Bloodtype Patient rh Status Prepregnancy Weight lbs Domestic Partner Domestic Partner Phone Father Name Precision Assembly Inspector Status 02/11/20 1 CLOSED Fetus Data First Name Last Name Admitted to NICU Weight (g) Sex Living Outcome Pediatric Complications Fetus ID Race Codes Race Delivery Type 3061.74 6 M Full Term 4555 Vaginal Delivery Stone Calculation Initial Stone Date Initial Exam Date Initial Exam Provider Initial Ultrasound Date Last Menstrual Period Date Ultra Sound Weeks Gestation 0 Eighteen To Twenty Week Stone Update Ultra Sound Date Fundal Height At Umbil Quickening Date Ultra Sound Latest Weeks Gestation Final Stone Confirmed By Final Stone Confirmed Date Final Stone Date Ultra Sound Latest Days Gestation 0 0 Menstrual History Last Menstrual Date Menses Monthly On Bcp Conception Prior Menses Frequency Hcg Plus Date Menarche Onset Age Delivery Information Delivery Date Delivery Type Labor Anesthesia Weeks Gestation Incision Type Labor Labor Length Hrs Delivered By Post Complications Tubal Sterilization Discharge Date Comments 6 40 Discharge Information Feeding Method Contraceptive Method Maternal HG B and HCT Levels Ob Episode Information Episode Created Date Number of Fetuses Patient Bloodtype Patient rh Status Prepregnancy Weight lbs Domestic Partner Domestic Partner Phone Father Name Precision Assembly Inspector Status 02/11/20 1 CLOSED Fetus Data First Name Last Name Admitted to NICU Weight (g) Sex Living Outcome Pediatric Complications Fetus ID Race Codes Race Delivery Type 2409.48 0704 M Full Term 4552 Vaginal Delivery Stone Calculation Initial Stone Date Initial Exam Date Initial Exam Provider Initial Ultrasound Date Last Menstrual Period Date Ultra Sound Weeks Gestation 0 Eighteen To Twenty Week Stone Update Ultra Sound Date Fundal Height At Umbil Quickening Date Ultra Sound Latest Weeks Gestation Final Stone Confirmed By Final Stone Confirmed Date Final Stone Date Ultra Sound Latest Days Gestation 0 0 Menstrual History Last Menstrual Date Menses Monthly On Bcp Conception Prior Menses Frequency Hcg Plus Date Menarche Onset Age Delivery Information Delivery Date Delivery Type Labor Anesthesia Weeks Gestation Incision Type Labor Labor Length Hrs Delivered By Post Complications Tubal Sterilization Discharge Date Comments 1 37 Discharge Information Feeding Method Contraceptive Method Maternal HG B and HCT Levels
== END 2024-09-12 12:43 | disposition home or self-care (01) ==
LOC: CHSIMG 12:45
PROVIDERS: PCP Nurse Practitioner; Visit Provider Nurse Practitioner
DX: Z12.31 Encounter for screening mammogram for malignant neoplasm of breast (principal)
CPT/HCPCS: 77063; 77067

== ENCOUNTER 2025-05-05 11:02 | Emergency (ER) | payer OTHER, SELFPAY ==
--- NOTE | ~2025-05-05 | XR_ITS ---
EXAMINATION: XR knee LT 3V DATE: 05/05/2025 11:31 INDICATION: Pain TECHNIQUE: Left knee x-rays were obtained. COMPARISON: None. FINDINGS: No fracture subluxation or dislocation. No large effusion. Mild degenerative appearing changes. IMPRESSION: 1. No acute or aggressive bony or soft tissue process seen. 2. For persisting knee pain refractory to conservative therapy, consider correlation with the MRI for optimal sensitivity. Reviewed, dictated and finalized at location A. DISTRIBUTION EXECUTIVE IMPRESSION: 1. No acute or aggressive bony or soft tissue process seen. 2. For persisting knee pain refractory to conservative therapy, consider correl ation with the MRI for optimal sensitivity.
[2025-05-05 11:11] VITALS: BP 100/68; PULSE 73; RESP 18; TEMP 36.8; O2SAT 99
--- NOTE | 2025-05-05 11:13 | ED_ITS ---
HPI - General Adult General Chief complaint: Extremity Injury, Lower Stated complaint: left knee pain Time Seen by Provider: 05/05/25 11:13 Source: patient, RN notes reviewed and old records reviewed Mode of arrival: ambulatory Limitations: no limitations History of Present Illness HPI narrative: 39 year old female who presents to [facility] care with complaints of left knee pain for the past 2 weeks with no known injury to her left knee. Patient reports that she has chronic back problems and took a couple of muscle relaxers for her discomfort with no other treatment. 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 Patient reports pain at anterior knee region below knee joint, full mobility of left knee noted with no present swelling present. MD complaint: left knee pain Onset (ago): week(s) (2) Location: left and lower extremity (knee) Severity scale (1-10): 4 Treatments prior to arrival: other (took muscle relaxer X2) Related Data Home Medications ?Medication ?Instructions ?Recorded ?Confirmed ?Last Taken ?Type famotidine 40 mg tablet 40 mg PO DAILY 04/13/2211/19 Unknown History esomeprazole magnesium 40 mg 40 mg PO DAILY 08/01/23 1 06/03/23 Unknown History capsule,delayed release (Nexium) ferrous sulfate 325 mg (65 mg 325 mg PO DAILY 03/06/24 Unknown History iron) tablet Allergies Allergy/AdvReac Type Severity Reaction Status Date / Time No Known Allergies Allergy Verified 05/05/25 11:14 Review of Systems Review of Systems: CONSTITUTIONAL: Denies fever, chills, or sweats. EYES: Denies visual changes, redness, or discharge. ENT: Denies rhinorrhea, congestion, sore throat, or otalgia. CARDIOVASCULAR: Denies chest pain, palpitations, or edema. RESPIRATORY: Denies cough or dyspnea. GASTROINTESTINAL: Denies abdominal pain, nausea, vomiting, or diarrhea. GENITOURINARY: Denies dysuria or hematuria. SKIN: Denies rash or itching. MUSCULOSKELETAL: reports history of chronic back pain, left knee pain reported with no injury,, or myalgia. NEUROLOGIC: Denies headache, numbness, or weakness. PSYCHIATRIC: Denies anxiety or depression. All systems reviewed & are unremarkable except as noted in HPI and below [facility] Past Medical History Medical History Chronic low back pain with right-sided sciatica Anemia GERD (gastroesophageal reflux disease) Seasonal allergies Surgical History Surgical History History of orthopedic surgery right wrist with hardware Family History Family History Mother Hypertension Father Heart problem Sibling Depression Grandparent Cancer Grandparent Cancer Social History Social History Smoking status: Never smoker Alcohol intake: current Alcohol use details: occasionally . 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 There is no relevant family history pertinent to the presenting complaint Exam Narrative: GENERAL: Well-appearing, well-nourished, and in no acute distress. HEAD: Normocephalic, atraumatic. EYES: PERRLA and EOMI. ENT: Nares clear, no rhinorrhea or epistaxis. Mucous membranes moist.TM's normal, throat pink with no exudates or swelling NECK: Supple.no lymphadenopathy CHEST: Clear to auscultation. No respiratory distress.SAO2 99% on room air HEART: Regular rate and rhythm. No murmur heard. Normal peripheral pulses. ABDOMEN: Soft, nontender, nondistended, normal active bowel sounds. EXTREMITIES: Normal range of motion. No edema. Pain to left knee anterior aspect below knee joint with no injury, full mobility of left knee with no swelling noted. denies any posterior knee pain or any tingling or numbness to left lower extremity, SKIN: Warm, dry, no rash. NEURO: No focal deficits. Alert and oriented x3. Course Course Level of Care: Express Care Visit Vital Signs Vital signs: Vital Signs Temperature 36.8 C 05/05/25 11:11 Pulse Rate 73 05/05/25 11:11 Respiratory Rate 18 05/05/25 11:11 Blood Pressure 100/68 05/05/25 11:11 Pulse Oximetry 99 05/05/25 11:11 Oxygen Delivery Room Air 05/05/25 11:11 Temperature 36.8 C 05/05/25 11:11 Pulse Rate 73 05/05/25 11:11 Respiratory Rate 18 05/05/25 11:11 Blood Pressure 100/68 05/05/25 11:11 Pulse Oximetry 99 05/05/25 11:11 Oxygen Delivery Room Air 05/05/25 11:11 MDM MDM Narrative Medical decision making narrative: 39 year old female with pain to left knee without injury agreeable to plan of c are with follow up with PCP and orthopedic if continued problems. Anticipatory guidance and reasons to seek care in ED reviewed with patient and understanding verbalized. X-ray showing mild degenerative changes to left knee without acute bony or soft tissue process. Differential Diagnosis Differential Diagnosis: Differential diagnostic considerations for extremity problems include sprain/strain, fracture, DVT, herpes zoster, gout, cellulitis, superficial thrombophlebitis, physiologic edema, arthritis??? Imaging Data Attestation: I personally reviewed and interpreted this imaging study as follows: My impression: no acute bony or soft tissue process, mild degenerative changes Radiologist's impression: ITS Impressions Knee X-Ray 05/05/25 11:33 IMPRESSION: 1. No acute or aggressive bony or soft tissue process seen. 2. For persisting knee pain refractory to conservative therapy, consider correlation with the MRI for optimal sensitivity. Critical Care Time Critical Care Time Critical Care Time: No Discharge Plan Discharge Clinical Impression: Knee pain, left Qualifiers: Chronicity: acute Qualified Code(s): M25.562 - Pain in left knee Patient Disposition: Home Condition: Stable Instructions: Knee Pain (ED) Additional Instructions: Elastic wrap or neoprene sleeve to left knee for support. Tylenol for lesser pain Ibuprofen regularly for the next 2-3 days for the inflammation Ibuprofen 400- 600 mg 3-4 times a day for the next 4 days with food Follow-up with orthopedic surgeon if continued problems Follow-up with PCP if further problems or concerns Ice to the area 20-30 minutes 4-6 times a day Elevate above heart If your symptoms persist, change or worsen significantly before you can contact your personal physician then please, without delay, go to the emergency department for further evaluation. Follow-up with PCP in 7-10 days or sooner if needed Patient Language: Macedonian Prescriptions: No Action famotidine 40 mg tablet 40 mg PO DAILY esomeprazole magnesium [Nexium] 40 mg capsule,delayed release(DR/EC) 40 mg PO DAILY methocarbamol 750 mg tablet 750 mg PO TID PRN (Reason: muscle spasm) Qty: 30 2RF ferrous sulfate 325 mg (65 mg iron) tablet 325 mg PO DAILY Follow-up/Referrals: Cammie,Paula Cutler MD [Primary Care Provider, Unknown] Time of Disposition: 11:55 Quality Pardeep Coma Scale Eyes: Open Verbal: Oriented and Alert Motor: Follows Commands [place] Coma Total Score: 15
== END 2025-05-05 12:01 | disposition home or self-care (01) ==
PROVIDERS: Emergency Provider Registered Nurse; PCP Student in an Organized Health Care Education/Training Program
DX: M25.562 Pain in left knee (principal); K21.9 Gastro-esophageal reflux disease without esophagitis; D64.9 Anemia, unspecified
CPT/HCPCS: 73562; 99213; G0463